=== PATIENT | female | born 1935 | race Caucasian/White ===

== ENCOUNTER 2019-01-03 12:38 | Emergency (ER) | payer OTHER, SELFPAY ==
[2019-01-03 12:56] VITALS: BP 218/85; PULSE 72; RESP 24; TEMP 36.5; O2SAT 99; BMI 19.0
--- NOTE | 2019-01-03 13:17 | ED_ITS ---
HPI - Syncope General Chief Complaint: Dizziness Stated Complaint: GLF Time Seen by Provider: 01/03/19 13:01 Source: patient and EMS Mode of arrival: EMS Limitations: no limitations History of Present Illness HPI narrative: Patient comes emergency department via EMS after being found to have a syncopal episode at her assisted living facility. Patient states the last thing she remembers was that she was getting ready to go down for meal and woke up on the floor. Patient states she has a sore area on her back does not feel like she was injured in any other way. Patient denies any nausea or vomiting recently. No diarrhea. She does not recall having any chest pains, shortness of breath, or cough. Patient's son states the patient has seemed to be ?wobbly? for about the last 6 weeks, and seems to have been having falls and weakness without focality. Patient denies any other complaints at this time. She states that she is otherwise feeling okay. Related Data Allergies Allergy/AdvReac Type Severity Reaction Status Date / Time No Known Drug Allergies Allergy Verified 01/03/19 12:56 Review of Systems Constitutional Constitutional: Denies chills, Denies fatigue, Denies fever(s), Denies frequent falls, Denies lethargy and Denies weakness Eyes Eyes: Denies change in vision, Denies eye discharge, Denies irritation and Denies loss of vision ENT Ears, Nose, Mouth, and Throat: Denies change in voice, Denies dizziness, Denies neck pain, Denies sore throat and Denies throat swelling Cardiovascular Cardiovascular: Denies chest pain, Reports syncope, Denies irregular heart rhy thm, Denies lightheadedness, Denies palpitations, Denies dyspnea, Denies dyspnea on exertion and Denies orthopnea Respiratory Respiratory: Denies cough, Denies dyspnea, Denies dyspnea on exertion and Denies wheezing Gastrointestinal Gastrointestinal: Denies abdominal pain, Denies change in bowel habits, Denies diarrhea, Denies nausea and Denies vomiting Genitourinary Genitourinary: Denies hematuria, Denies flank pain, Denies urinary incontinence and Denies urinary urgency Musculoskeletal Musculoskeletal: Denies back pain, Denies muscle weakness, Denies neck pain, Denies numbness and Denies tingling Integumentary/Breasts Skin/Breast: Denies pruritus, Denies erythema, Denies rash and Denies wounds Neurologic Neurologic: Denies behavioral changes, Denies confusion, Denies dizziness, Reports syncope, Denies frequent falls, Denies loss of vision, Denies numbness, Denies tingling and Denies weakness Psychiatric Psychiatric: Denies anxiety, Denies behavioral changes, Denies confusion, Denies depression, Denies homicidal ideation and Denies suicidal ideation Endocrine Endocrine: Denies fatigue, Denies flushing and Denies palpitations Hematologic/Lymphatic Hematologic/Lymphatic: Denies easy bruising Allergic/Immunologic Allergic/Immunologic: Denies urticaria, Denies throat swelling and Denies wheezing Patient History Medical History Anxiety (Chronic Unknown) Chickenpox (Resolved) Depression (Chronic Unknown) Frequent UTI (Chronic Unknown) Hypertension (Chronic ~2007) Measles (Resolved) Surgical History Hx of eye surgery (Resolved Unknown) Hx of hysterectomy (Resolved Unknown) Family History Brother Heart disease Social History Smoking Status: Never smoker Substance Use Type: does not use Exam Initial Vital Signs Initial Vital Signs: Vital Signs Temperature 97.7 F 01/03/19 12:56 Pulse Rate 72 01/03/19 12:56 Respiratory Rate 24 01/03/19 12:56 Blood Pressure 218/85 H 01/03/19 12:56 Pulse Oximetry 99 01/03/19 12:56 Const General: cooperative and well developed Nutritional Appearance: well nourished Orientation: alert, awake and confused Other: Patient answers questions clearly, but repeats herself frequently. [facility] Head: normocephalic and atraumatic Ears: external ears normal Nose: external nose normal and No nasal discharge Face and sinus: face symmetric and No dry mucous membranes Mouth: oral mucosae normal and moist mucous membranes Teeth and gingiva: dentition normal Eyes General: appearance normal, both eyes and all related structures Eyelids: eyelids normal Conjunctivae: conjunctivae normal Sclera: sclerae normal Pupils: PERRL EOM: EOM intact bilaterally Neck Neck: normal visual inspection, trachea midline, No lymphadenopathy, No midline deformity and No JVD Lymphatic: No lymphedema Chest Chest: normal inspection of the chest Resp Effort & Inspection: normal respiratory effort, able to speak in complete sentences, no respiratory distress and no use of accessory muscles Auscultation: clear to auscultation bilaterally, no rales, no rhonchi and no wheezes Cardio Rate: regular rate Rhythm: regular rhythm Heart Sounds: no click, no gallops, no murmurs and no rubs Pulses: normal peripheral pulses GI Inspection: non-distended Palpation: soft, no hepatosplenomegaly, No guarding, No pulsatile mass and No tender Auscultation: normal bowel sounds Back/Spine/Pelvis Back: No CVA tenderness Cervical Spine: cervical ROM normal and No pain with cervical ROM Thoracic/Lumbar Spine: thoracic and lumbar spine normal to inspection Other: Patient has an area of swelling and abrasion over her right posterior rib cage inferiorly. No crepitus or step-off of the ribs. Skin General: no rashes or lesions noted, No jaundice and No petechiae Neuro General: alert, oriented x3, gait normal and no focal motor deficits Speech: speech normal Extrem General: full ROM, no pedal edema and no calf tenderness Other: No hip tenderness. No lower extremity shortening or rotation. Psych Appearance: well kempt Mental Status: mental status grossly normal Attitude: cooperative Thought Content: normal and suicidality Judgment: judgment good Course Course Course Narrative: Patient was worked up with labs, head CT, and x-ray of the ribs. Entire workup was unremarkable. The patient was given IV fluids in the emergency department was found to be feeling better. She was able to ambulate to the bathroom without difficulty. We have discussed home management of symptoms, and the patient and family have been given instructions regarding fall prevention. We have discussed the usual indications for return. Orders Ordered: ED Orders 01/03/19 12:49 EKG-12 Lead Routine 01/03/19 13:08 Complete Blood Count AUTO DIFF Stat Comprehensive Metabolic Panel Stat Troponin & CK Cardiac Panel Stat 01/03/19 13:38 CT head/brain wo con Stat XR ribs RT min 3V w CXR1V Stat 01/03/19 14:50 Urinalysis and Microscopic Stat Discontinued Medications Sodium Chloride (Normal Saline 0.9%) 1,000 mls @ 1,000 mls/hr IV BOLUS ONE Stop: 01/03/19 14:16 Last Infusion: 01/03/19 15:06 Dose: 0 mls/hr Documented by: Admin: 01/03/19 13:53 Dose: 1,000 mls/hr Documented by: DEANDRA Vital Signs Vital signs: Vital Signs - 8 hr 01/03/19 12:56 01/03/19 13:27 01/03/19 13:35 Temperature 97.7 F Pulse Rate 72 91 H 52 L Respiratory Rate 24 19 18 Blood Pressure 218/85 H Blood Pressure [Left Arm] 193/79 H 137/93 H Pulse Oximetry 99 100 100 01/03/19 15:49 01/03/19 16:45 Temperature 98.2 F Pulse Rate 75 73 Respiratory Rate 24 19 Blood Pressure 207/67 H Blood Pressure [Left Arm] 153/99 H Pulse Oximetry 99 99 MDM - Syncope Medical Records Attestation: I reviewed the patient's medical records. Lab Data Attestation: I reviewed the patient's lab results. Result diagrams: 01/03/19 13:08 01/03/19 13:08 Labs: Lab Results 01/03/19 01/03/19 01/03/19 Range/Units 13:08 13:08 14:50 WBC 5.2 (4.5-11.0) X10^3/uL RBC 4.97 (4.0-5.2) X10^6/uL Hgb 15.8 (12.0-16.0) g/dL Hct 46.6 H (36-46) % MCV 93.7 (80-100) fL MCH 31.7 (26-34) PG MCHC 33.9 (30-36) % RDW 14.0 (11.6-14.8) % Plt Count 179 (150-400) X10^3/uL Neut % (Auto) 75.4 H (50-75) % Lymph % (Auto) 14.2 L (25-40) % [place] % (Auto) 9.3 (3-14) % Eos % (Auto) 0.7 L (2-4) % Baso % (Auto) 0.4 (0-2) % Neut # (Auto) 3900 (8172-3038) /uL Lymph # (Auto) 700 L (8077-2918) /uL [place] # (Auto) 500 (0-900) /uL Eos # (Auto) 0 (0-450) /uL Baso # (Auto) 0 (0-100) /uL Sodium 138 (137-145) mmol/L Potassium 3.6 (3.4-5.1) mmol/L Chloride 97 L (98-107) mmol/L Carbon Dioxide 30 (22-32) mmol/L BUN 14 (7-17) mg/dL Creatinine 0.60 (0.52-1.04) mg/dL Estimated GFR > 60.0 (>60) mL/min BUN/Creatinine Ratio 23.3 H (6-22) Glucose 119 H (80-110) mg/dL Calcium 9.5 (8.4-10.2) mg/dL Total Bilirubin 1.5 H (0.2-1.3) mg/dL AST 32 (14-36) IU/L ALT 27 (9-52) IU/L Alkaline Phosphatase 99 (38-126) U/L Total Creatine Kinase 42 (30-135) U/L CK-MB (CK-2) TNP CK-MB (CK-2) Rel Index TNP Troponin I < 0.012 (0.01-0.034) ng/mL Total Protein 7.5 (6.3-8.2) g/dL Albumin 4.4 (3.5-5.0) g/dL Globulin 3.1 (1.7-4.1) g/dL Albumin/Globulin Ratio 1.4 (1.0-2.8) Urine Color Yellow Urine Appearance Cloudy Urine pH 8.0 (4.5-8.0) Ur Specific Merlin 1.010 (1.000-1.035) Urine Protein Negative (Negative) Urine Glucose (UA) Negative (Negative) g/dL Urine Ketones Trace H (NEGATIVE) Urine Occult Blood Negative (Negative) Urine Nitrate Positive (Negative) Urine Bilirubin Negative (NEGATIVE) Urine Urobilinogen 0.2 (0.2) E.U./dL Ur Leukocyte Esterase Trace H (NEGATIVE) Urine RBC None seen (0-5/HPF) Urine WBC 5-10/hpf H (0-5/HPF) Ur Squamous Epith Cells 5-10 /hpf H (0-5/HPF) Urine Bacteria Many (>30) H (None) Ur Culture Indicated? Cult not indicated Imaging Data Rib x-ray series: Radiologist's impression: PROCEDURE: XR RIBS RT MIN 3V W CXR 1V INDICATIONS: rib injury with fall TECHNIQUE: 2 views of the right ribs were acquired, along with a single view chest. COMPARISON: None. FINDINGS: Surgical changes and devices: None. Bones and chest wall: No fractures or dislocations. No suspicious bony lesions. Overlying soft tissues appear unremarkable. Lungs and pleura: No pleural effusions or pneumothorax. Lungs appear clear. Mediastinum: Mediastinal contours appear normal. Heart size is normal. IMPRESSION: 1. No acute process. 2. No acute fracture. No osseous lesion. If symptoms and/or clinical suspicion f or pathology persist, further assessment with repeat, or advanced imaging (e.g., CT or bone scan) may be helpful for further assessment. Dictated by: Al Auguste M.D. on 01/03/2019 at 14:16 Approved by: Al Auguste M.D. on 01/03/2019 at 14:17 CT scan - head: Radiologist's impression: PROCEDURE: CT HEAD/BRAIN WO CON INDICATIONS: syncope, hit head TECHNIQUE: Noncontrast 4.5 mm thick angled axial sections acquired from the foramen magnum to the vertex, with coronal and sagittal reformats. For radiation dose reduction, the following was used: automated exposure control, adjustment of mA and/or kV according to patient size. COMPARISON: None. FINDINGS: Image quality: Excellent. CSF spaces: Basal cisterns are patent. No extra-axial fluid collections. The ventricles are symmetric in size and shape. Brain: No intracranial bleeds or masses. There is cerebral volume loss for age, with resultant ventricular and sulcal prominence. There are periventricular and deep white matter chronic small vessel ischemic changes. 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 There is intracranial internal carotid artery atherosclerosis. Skull and face: Calvarium and visualized facial bones appear intact, without suspicious lesions. Incidental note is made of hyperostosis frontalis. This is not considered to be pathologic in a woman of this age. Sinuses: Visualized sinuses and mastoids are clear. Incidental note is made of mild to moderate leftward nasal septal deviation. IMPRESSION: No acute intracranial process is seen. No acute intracranial hemorrhage is seen. Note is made of age-appropriate brain parenchymal volume loss and chronic small vessel ischemic changes. Dictated by: Ike Cohen M.D. on 01/03/2019 at 13:05 Approved by: Ike Cohen M.D. on 01/03/2019 at 13:06 ECG Data Attestation: I personally reviewed and interpreted this ECG as follows: (See below) Interpretation: Twelve lead EKG performed January 03, 2019 at 12:49 p.m., as follows: Regular ventricular rhythm with a rate of [address] intervals 166 millisecond QRS durations 98 millisecond QTC interval is [address] T wave changes Interpretation: Sinus rhythm with occasional PVCs; borderline right axis deviation; no signs of acute ischemia; borderline EKG as interpreted by EDMD. Discharge Plan Departure Patient Disposition: Home Clinical Impression: Syncope Qualifiers: Syncope type: unspecified Qualified Code(s): R55 - Syncope and collapse Fall Qualifiers: Encounter type: initial encounter Qualified Code(s): W19.XXXA - Unspecified fall, initial encounter Discharge Date/Time: 01/03/19 16:45 Instructions: DI for Syncope in Adults (Fainting) Activity Restrictions/Additional Instructions: The tests all look good. There is no evidence of an emergent cause the fall/fainting episode today. There is also no evidence of significant trauma associated with this. Please be sure to have Almita drink plenty of fluids, and have her follow up with her primary care physician. Referrals: [facility] [Provider Group]
[2019-01-03 13:24] LABS: Add Manual Diff / Slide Review NO; Basophils Absolute Auto 0 /uL (0-100); Basophils Percent Auto 0.4 % (0-2); Eosinophils Absolute Auto 0 /uL (0-450); Eosinophils Percent Auto 0.7 % (2-4); Hematocrit 46.6 % (36-46); Hemoglobin 15.8 g/dL (12.0-16.0); Lymphocytes Absolute Auto 700 /uL (1100-4500); Lymphocytes Percent Auto 14.2 % (25-40); Mean Corpuscular HGB Conc 33.9 % (30-36); Mean Corpuscular Hemoglobin 31.7 PG (26-34); Mean Corpuscular Volume 93.7 fL (80-100); Monocytes Absolute Auto 500 /uL (0-900); Monocytes Percent Auto 9.3 % (3-14); Neutrophils Absolute Auto 3900 /uL (1500-7000); Neutrophils Percent Auto 75.4 % (50-75); Platelet Count 179 X10^3/uL (150-400); Red Blood Cell Count 4.97 X10^6/uL (4.0-5.2); White Blood Cell Count 5.2 X10^3/uL (4.5-11.0)
[2019-01-03 13:27] VITALS: BP 193/79; PULSE 91; RESP 19; O2SAT 100
[2019-01-03 13:29] LABS: Alanine Aminotransferase 27 IU/L (9-52); Albumin 4.4 g/dL (3.5-5.0); Albumin Globulin Ratio 1.4 (1.0-2.8); Alkaline Phosphatase 99 U/L (38-126); Aspartate Aminotransferase 32 IU/L (14-36); BUN Creatinine Ratio 23.3 (6-22); Bilirubin Total 1.5 mg/dL (0.2-1.3); Blood Urea Nitrogen 14 mg/dL (7-17); Calcium 9.5 mg/dL (8.4-10.2); Carbon Dioxide 30 mmol/L (22-32); Chloride 97 mmol/L (98-107); Creatine Kinase 42 U/L (30-135); Estimated Glomerular Filt Rate > 60.0 mL/min (>60); Globulin 3.1 g/dL (1.7-4.1); Glucose 119 mg/dL (80-110); HEMOLYSIS 24 (0-50); Potassium 3.6 mmol/L (3.4-5.1); Sodium 138 mmol/L (137-145); Total Protein 7.5 g/dL (6.3-8.2)
[2019-01-03 13:35] VITALS: BP 137/93; PULSE 52; RESP 18; O2SAT 100
--- NOTE | 2019-01-03 13:38 | DI.RAD.S_ITS ---
PROCEDURE: XR RIBS RT MIN 3V W CXR 1V INDICATIONS: rib injury with fall TECHNIQUE: 2 views of the right ribs were acquired, along with a single view chest. COMPARISON: None. FINDINGS: Surgical changes and devices: None. Bones and chest wall: No fractures or dislocations. No suspicious bony lesions. Overlying soft tissues appear unremarkable. Lungs and pleura: No pleural effusions or pneumothorax. Lungs appear clear. Mediastinum: Mediastinal contours appear normal. Heart size is normal. IMPRESSION: 1. No acute process. 2. No acute fracture. No osseous lesion. If symptoms and/or clinical suspicion for pathology persist, further assessment with repeat, or advanced imaging (e.g., CT or bone scan) may be helpful for further assessment. Dictated by: Al Auguste M.D. on 01/03/2019 at 14:16 Approved by: Al Auguste M.D. on 01/03/2019 at 14:17
--- NOTE | 2019-01-03 13:38 | DI.CT.S_ITS ---
PROCEDURE: CT HEAD/BRAIN WO CON INDICATIONS: syncope, hit head TECHNIQUE: Noncontrast 4.5 mm thick angled axial sections acquired from the foramen magnum to the vertex, with coronal and sagittal reformats. For radiation dose reduction, the following was used: automated exposure control, adjustment of mA and/or kV according to patient size. COMPARISON: None. FINDINGS: Image quality: Excellent. CSF spaces: Basal cisterns are patent. No extra-axial fluid collections. The ventricles are symmetric in size and shape. Brain: No intracranial bleeds or masses. There is cerebral volume loss for age, with resultant ventricular and sulcal prominence. There are periventricular and deep white matter chronic small vessel ischemic changes. 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 There is intracranial internal carotid artery atherosclerosis. Skull and face: Calvarium and visualized facial bones appear intact, without suspicious lesions. Incidental note is made of hyperostosis frontalis. This is not considered to be pathologic in a woman of this age. Sinuses: Visualized sinuses and mastoids are clear. Incidental note is made of mild to moderate leftward nasal septal deviation. IMPRESSION: No acute intracranial process is seen. No acute intracranial hemorrhage is seen. Note is made of age-appropriate brain parenchymal volume loss and chronic small vessel ischemic changes. Dictated by: Ike Cohen M.D. on 01/03/2019 at 13:05 Approved by: Ike Cohen M.D. on 01/03/2019 at 13:06
[2019-01-03 13:40] LABS: Troponin I < 0.012 ng/mL (0.01-0.034)
[2019-01-03] MEDS: SODIUM CHLORIDE 0.9% 1,000 ML 1000 ML IV (13:53)
[2019-01-03 15:49] VITALS: BP 153/99; PULSE 75; RESP 24; O2SAT 99
[2019-01-03 15:54] LABS: RBC Urine None Seen (0-5/HPF)
[2019-01-03 15:56] LABS: Appearance Urine UA CLOUDY; Bilirubin Urine UA NEGATIVE (NEGATIVE); Color Urine UA YELLOW; Glucose Urine UA NEGATIVE (Negative); Ketones Urine UA TRACE (NEGATIVE); Leukocyte Esterase Urine UA TRACE (NEGATIVE); Nitrite Urine UA POSITIVE (Negative); Occult Blood Urine UA NEGATIVE (Negative); Protein Urine UA NEGATIVE (Negative); Urobilinogen Urine UA 0.2 E.U./dL (0.2)
[2019-01-03 16:04] LABS: Bacteria Urine Many (>30); Culture Indicated Urine Cult Not Indicated; Squamous Epithelial Cell Urine 5-10 /HPF (0-5/HPF); WBC Urine 5-10/HPF (0-5/HPF)
[2019-01-03 16:45] VITALS: BP 207/67; PULSE 73; RESP 19; TEMP 36.8; O2SAT 99
== END 2019-01-03 16:45 | disposition home or self-care (01) ==
PROVIDERS: Emergency Provider Emergency Medicine
DX: R55 Syncope and collapse (principal); I10 Essential (primary) hypertension; R42 Dizziness and giddiness; S29.9XXA Unspecified injury of thorax, initial encounter; S09.90XA Unspecified injury of head, initial encounter; W18.30XA Fall on same level, unspecified, initial encounter
CPT/HCPCS: 36415; 70450; 71101; 80053; 81001; 82550; 84484; 85025; 93005; 93010; 96360; 99283; 99285

== ENCOUNTER 2019-05-07 11:25 | Observation (INO) | payer OTHER, SELFPAY ==
[2019-05-07] VITALS (18 sets, daily range): BP systolic 122–183; BP diastolic 62–131; PULSE 76–134; RESP 14–22; TEMP 36.8–37.1; O2SAT 96–99; BMI 23.0
--- NOTE | 2019-05-07 11:42 | DI.RAD.S_ITS ---
PROCEDURE: XR KNEE RT 3V INDICATIONS: fall, right knee pain TECHNIQUE: 3 views of the knee were acquired. COMPARISON: None. FINDINGS: Bones: No fractures or dislocations. No suspicious bony lesions. Moderate degenerative arthritis. Soft tissues: No joint effusion. No suspicious soft tissue calcifications. IMPRESSION: Moderate degenerative arthritis. No evidence acute bony abnormality of the right knee.. If clinical suspicion and/or symptoms persist, further assessment with repeat plain films, or advanced imaging (e.g., CT, MRI, or bone scan) may be helpful for further assessment. Dictated by: Forrest Sanderson M.D. on 05/07/2019 at 12:31 Approved by: Forrest Sanderson M.D. on 05/07/2019 at 12:31
--- NOTE | 2019-05-07 11:42 | DI.RAD.S_ITS ---
PROCEDURE: XR CHEST 1V INDICATIONS: fall, tachycardia TECHNIQUE: One view of the chest was acquired. COMPARISON: None. FINDINGS: Surgical changes and devices: None. Lungs and pleura: Lungs are clear. No pleural effusions or pneumothorax. Mediastinum: Mediastinal contours appear normal. Heart size is normal. Bones and chest wall: No suspicious bony lesions. Overlying soft tissues appear unremarkable. IMPRESSION: No evidence acute pulmonary process. Dictated by: Forrest Sanderson M.D. on 05/07/2019 at 12:23 Approved by: Forrest Sanderson M.D. on 05/07/2019 at 12:23
--- NOTE | 2019-05-07 11:42 | DI.RAD.S_ITS ---
PROCEDURE: XR HIP W PEL IF DONE BILAT 2V INDICATIONS: fall pain in bilateral hip TECHNIQUE: AP pelvis with lateral view(s) of the bilateral hip(s). COMPARISON: None. FINDINGS: Bones: No fractures or dislocations. Pelvic ring appears intact. No suspicious bony lesions. Soft tissues: The visualized bowel gas pattern is normal. No suspicious soft tissue calcifications. IMPRESSION: No evidence acute bony abnormality of the pelvis and bilateral hips. If clinical suspicion and/or symptoms persist, further assessment with repeat plain films, or advanced imaging (e.g., CT, MRI, or bone scan) may be helpful for further assessment. Dictated by: Forrest Sanderson M.D. on 05/07/2019 at 12:22 Approved by: Forrest Sanderson M.D. on 05/07/2019 at 12:23
[2019-05-07 12:05] LABS: Add Manual Diff / Slide Review NO; Basophils Absolute Auto 0 /uL (0-100); Basophils Percent Auto 0.5 % (0-2); Eosinophils Absolute Auto 0 /uL (0-450); Eosinophils Percent Auto 0.5 % (2-4); Hematocrit 43.2 % (36-46); Hemoglobin 14.8 g/dL (12.0-16.0); Lymphocytes Absolute Auto 1100 /uL (1100-4500); Lymphocytes Percent Auto 20.6 % (25-40); Mean Corpuscular HGB Conc 34.2 % (30-36); Mean Corpuscular Hemoglobin 31.7 PG (26-34); Mean Corpuscular Volume 92.5 fL (80-100); Monocytes Absolute Auto 700 /uL (0-900); Monocytes Percent Auto 12.9 % (3-14); Neutrophils Absolute Auto 3500 /uL (1500-7000); Neutrophils Percent Auto 65.5 % (50-75); Platelet Count 166 X10^3/uL (150-400); Red Blood Cell Count 4.67 X10^6/uL (4.0-5.2); Red Cell Distribution Width 13.6 % (11.6-14.8); White Blood Cell Count 5.3 X10^3/uL (4.5-11.0)
[2019-05-07 12:20] LABS: Alanine Aminotransferase 20 IU/L (<35); Albumin Globulin Ratio 1.3 (1.0-2.8); Alkaline Phosphatase 83 U/L (38-126); Aspartate Aminotransferase 30 IU/L (14-36); BUN Creatinine Ratio 35.7 (6-22); Bilirubin Total 1.1 mg/dL (0.2-1.3); Blood Urea Nitrogen 25 mg/dL (7-17); Calcium 9.1 mg/dL (8.4-10.2); Carbon Dioxide 28 mmol/L (22-32); Chloride 101 mmol/L (98-107); Creatine Kinase 40 U/L (30-135); Estimated Glomerular Filt Rate > 60.0 mL/min (>60); Globulin 3.1 g/dL (1.7-4.1); Glucose 91 mg/dL (80-110); HEMOLYSIS 21 (0-50); Potassium 4.2 mmol/L (3.4-5.1); Sodium 137 mmol/L (137-145); Total Protein 7.1 g/dL (6.3-8.2)
[2019-05-07 12:32] LABS: Troponin I < 0.012 ng/mL (0.01-0.034)
[2019-05-07] MEDS: SODIUM CHLORIDE 0.9% 500 ML 1000 ML IV (13:02)
[2019-05-07] MEDS: dilTIAZem 5 MG/ML SDV 10 MG IV (13:02)
--- NOTE | 2019-05-07 13:08 | PC.NURSE ---
Pt is on no meds, has no allergies. Pt's son has been working through [facility] to gain guardianship and get into an assistive living or memory care unit. Pt has no PCP (she didn't like the last one she had) and son is working to find another. 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 He appears very loving and caring towards his mother and she is very comfortable w/ him.
--- NOTE | 2019-05-07 13:12 | ED_ITS ---
HPI - Fall <MOIRA Landon - Last Filed: 05/07/19 21:34> General Chief Complaint: Fall Stated Complaint: GLF Time Seen by Provider: 05/07/19 11:28 Source: patient Mode of arrival: Ambulatory Limitations: other (Dementia) History of Present Illness HPI Narrative: This is a 83 year female, nonsmoker, who presents to ED with [facility] with chief complain of fall. Patient currently lives alone at independent apartment at [facility]. Patient is unable to recall clearly but she states she wanted to stand up and to leave the room and possibly lost her balance and landed on her right hip. It is clear the patient has memory difficulty and unable to provide clear history. Patient reports she was on the floor a bit and called others to help. Finally, she was able to call her son and son contacted medics to respond to patient's call. According to medics, patient was able to take few steps at the scene without assistance but reports discomfort in right hip and knee. Upon arrival to ED patient complain of dizziness. Patient was hypertensive en route to ED. Patient denies chest pain, breathing difficulty. Son states patient does not have PCP currently and visits walk-in clinic for medical care. She is not currently taking any medications. Patient has history of hypertension, dementia and depression. Patient's last visit to ED was December last year with another fall. Related Data Home Medications Medication Instructions Recorded Confirmed No Known Home Medications 05/07/19 05/07/19 Allergies Allergy/AdvReac Type Severity Reaction Status Date / Time No Known Drug Allergies Allergy Verified 01/03/19 12:56 Review of Systems <MOIRA Landon - Last Filed: 05/07/19 21:34> Review of Systems Narrative: Respiratory: Denies dyspnea, cough, wheezing, hemoptysis, sputum. Cardiovascular: Denies chest pain, palpitations, orthopnea, edema. Musculoskeletal: HPI ROS Unobtainable: Unobtainable due to mental status/LOC Patient History <MOIRA Landon - Last Filed: 05/07/19 21:34> Medical History Anxiety (Chronic Unknown) Chickenpox (Resolved) Depression (Chronic Unknown) Frequent UTI (Chronic Unknown) Hypertension (Chronic ~2007) Measles (Resolved) Surgical History Hx of eye surgery (Resolved Unknown) Hx of hysterectomy (Resolved Unknown) Family History Brother Heart disease Social History household members: none Smoking Status: Never smoker alcohol intake: former Smoking Status: Never smoker Substance Use Type: does not use Exam <MOIRA Landon - Last Filed: 05/07/19 21:34> Narrative Exam Narrative: GEN: Alert, oriented x 3, thin appearing and in no acute distress. Head: Normal cephalic, atraumatic. No scalp or temporal tenderness, palpable mass or rash. EYES: Pupils are equal, round, and reactive to light and accommodation. Extraocular muscles are intact bilaterally. There is no subconjunctival hemorrhage, exudate and sclera non-icteric. ENT: Bilateral auditory canals and tympanic membranes clear. Hearing grossly intact. Nose without bleeding, purulent discharge or deviation. Facial sinuses nontender to palpate. Mucous membrane moist, no mucosal lesion. Throat without erythema, tonsillar hypertrophy or exudate. Uvula in midline, airway patent. Neck: Trachea in midline. No JVD, non-tender without lymphadenopathy. No masses or thyroid megaly. Supple, non-tender and no meningeal signs. CARDIAC: Irregular rhythm and tachycardia rate in 120's without murmurs, gallops, or rubs. No chest wall tenderness. No peripheral edema, cyanosis or pallor. Capillary refill is less than 2 seconds. RESPIRATORY: Lungs are clear to auscultate bilaterally. No cough, wheezes, rales, or rhonchi. No stridor, respiratory distress, increase work of breathing, or accessary muscle used. ABD: Abdomen soft, nontender and non-distended. No guarding or rebound tenderness to palpate. Bowel sounds are normal in all 4 quadrants. There is no palpable masses or organomegaly. SKIN: Warm, dry, normal color for patient. No erythema, lesions or rash over visible areas. BACK: Nontender without deformity or crepitance. No flank tenderness. NEUROLOGICAL: Oriented to place, person which is patient's baseline according to patient's son. Sensation and motor function intact bilaterally. No facial droops, dysphasia. PSYCHIATRIC: No hallucinations, abnormal affect or abnormal behaviors during the examination. Initial Vital Signs Initial Vital Signs: Vital Signs Temperature 98.2 F 05/07/19 11:42 Pulse Rate 120 H 05/07/19 11:42 Respiratory Rate 22 05/07/19 11:42 Blood Pressure 161/131 H 05/07/19 11:42 Pulse Oximetry 98 05/07/19 11:42 <Brandan Nicolas DO - Last Filed: 05/09/19 06:58> Initial Vital Signs Initial Vital Signs: Vital Signs Temperature 98.2 F 05/07/19 11:42 Pulse Rate 120 H 05/07/19 11:42 Respiratory Rate 22 05/07/19 11:42 Blood Pressure 161/131 H 05/07/19 11:42 Pulse Oximetry 98 05/07/19 11:42 Scores <[facility] Last Filed: 05/07/19 21:34> GCS Romario coma scale eye opening: Spontaneous Romario coma scale verbal response: Confused [place] coma scale motor response: Obey commands Romario coma scale total score: 14 Nexus Score for C-Spine Focal Neurologic deficit present: No Midline spinal tenderness present: No Altered level of conciousness present: No Intoxication present: No Distracting Injury Present: No Nexus Criteria for C-spine: 0 Course <MOIRA Landon Last Filed: 05/07/19 21:34> Orders Ordered: Acetaminophen (Tylenol) 650 mg PO Q6HR PRN PRN Reason: Fever/Mild Pain (1-3) Last Admin: 05/09/19 00:05 Dose: 650 mg Documented by: Admin: 05/07/19 19:27 Dose: 650 mg Documented by: EMELINA Enoxaparin Sodium (Lovenox) 40 mg SUBCUT DAILY [facility] Last Admin: 05/08/19 07:49 Dose: 40 mg Documented by: JACKLYN Ceftriaxone Sodium/Dextrose (Rocephin) 1 gm in 50 mls @ 100 mls/hr IV Q24H [facility] Stop: 05/10/19 14:59 Last Admin: 05/08/19 14:24 Dose: 100 mls/hr Documented by: JACKLYN Melatonin (Melatonin) 6 mg PO BEDTIME PRN PRN Reason: sleep Stop: 05/10/19 20:25 Last Admin: 05/08/19 20:39 Dose: 6 mg Documented by: Admin: 05/07/19 20:42 Dose: 6 mg Documented by: BEAN Metoprolol Succinate (Toprol Xl) 50 mg PO BID [facility] Last Admin: 05/08/19 20:32 Dose: 50 mg Documented by: ARELI Ondansetron HCl (Zofran) 4 mg IV Q8HR PRN PRN Reason: Nausea And Vomiting Sodium Chloride (Normal Saline 0.9% Flush) 10 ml IV PRN PRN PRN Reason: Flush Sodium Chloride (Normal Saline 0.9% Flush) 10 ml IV BID [facility] Last Admin: 05/08/19 20:32 Dose: 10 ml Documented by: Admin: 05/08/19 07:49 Dose: 10 ml Documented by: JACKLYN Discontinued Medications Diltiazem HCl (Cardizem) 10 mg IV NOW ONE Stop: 05/07/19 12:40 Last Admin: 05/07/19 13:02 Dose: 10 mg Documented by: JAGDISH Sodium Chloride (Normal Saline 0.9%) 1,000 mls @ 150 mls/hr IV CONT [facility] Last Admin: 05/07/19 12:47 Dose: Not Given Documented by: JAGDISH Sodium Chloride (Normal Saline 0.9%) 500 mls @ 1,000 mls/hr IV BOLUS ONE Stop: 05/07/19 13:01 Last Infusion: 05/07/19 14:00 Dose: 0 mls/hr Documented by: Admin: 05/07/19 13:02 Dose: 1,000 mls/hr Documented by: JAGDISH Ceftriaxone Sodium/Dextrose (Rocephin) 1 gm in 50 mls @ 100 mls/hr IV NOW ONE Stop: 05/07/19 15:15 Last Infusion: 05/07/19 15:45 Dose: 0 mls/hr Documented by: Admin: 05/07/19 15:15 Dose: 100 mls/hr Documented by: JAGDISH Metoprolol Succinate (Toprol Xl) 25 mg PO NOW ONE Stop: 05/07/19 14:47 Last Admin: 05/07/19 15:33 Dose: 25 mg Documented by: JAGDISH Metoprolol Succinate (Toprol Xl) 25 mg PO BID [facility] Last Admin: 05/08/19 07:49 Dose: 25 mg Documented by: Admin: 05/07/19 20:42 Dose: 25 mg Documented by: BEAN Metoprolol Succinate (Toprol Xl) 25 mg PO NOW ONE Stop: 05/08/19 08:52 Last Admin: 05/08/19 10:01 Dose: 25 mg Documented by: JACKLYN Nitrofurantoin Macrocrystals (Macrobid 100 Mg Capsule) 100 mg PO NOW ONE Stop: 05/07/19 14:31 Last Admin: 05/07/19 15:03 Dose: Not Given Documented by: JAGDISH Vital Signs Vital signs: Vital Signs - 8 hr 05/07/19 13:31 05/07/19 14:00 05/07/19 14:02 Pulse Rate 121 H 89 Respiratory Rate 20 15 Blood Pressure [Left Arm] 152/92 H 163/80 H Pulse Oximetry 99 99 <Brandan Nicolas DO - Last Filed: 05/09/19 06:58> Orders Ordered: Acetaminophen (Tylenol) 650 mg PO Q6HR PRN PRN Reason: Fever/Mild Pain (1-3) Last Admin: 05/09/19 00:05 Dose: 650 mg Documented by: Admin: 05/07/19 19:27 Dose: 650 mg Documented by: EMELINA Enoxaparin Sodium (Lovenox) 40 mg SUBCUT DAILY [facility] Last Admin: 05/08/19 07:49 Dose: 40 mg Documented by: JACKLYN Ceftriaxone Sodium/Dextrose (Rocephin) 1 gm in 50 mls @ 100 mls/hr IV Q24H [facility] Stop: 05/10/19 14:59 Last Admin: 05/08/19 14:24 Dose: 100 mls/hr Documented by: JACKLYN Melatonin (Melatonin) 6 mg PO BEDTIME PRN PRN Reason: sleep Stop: 05/10/19 20:25 Last Admin: 05/08/19 20:39 Dose: 6 mg Documented by: Admin: 05/07/19 20:42 Dose: 6 mg Documented by: BEAN Metoprolol Succinate (Toprol Xl) 50 mg PO BID [facility] Last Admin: 05/08/19 20:32 Dose: 50 mg Documented by: ARELI Ondansetron HCl (Zofran) 4 mg IV Q8HR PRN PRN Reason: Nausea And Vomiting Sodium Chloride (Normal Saline 0.9% Flush) 10 ml IV PRN PRN PRN Reason: Flush Sodium Chloride (Normal Saline 0.9% Flush) 10 ml IV BID [facility] Last Admin: 05/08/19 20:32 Dose: 10 ml Documented by: Admin: 05/08/19 07:49 Dose: 10 ml Documented by: JACKLYN Discontinued Medications Diltiazem HCl (Cardizem) 10 mg IV NOW ONE Stop: 05/07/19 12:40 Last Admin: 05/07/19 13:02 Dose: 10 mg Documented by: JAGDISH Sodium Chloride (Normal Saline 0.9%) 1,000 mls @ 150 mls/hr IV CONT [facility] Last Admin: 05/07/19 12:47 Dose: Not Given Documented by: JAGDISH Sodium Chloride (Normal Saline 0.9%) 500 mls @ 1,000 mls/hr IV BOLUS ONE Stop: 05/07/19 13:01 Last Infusion: 05/07/19 14:00 Dose: 0 mls/hr Documented by: Admin: 05/07/19 13:02 Dose: 1,000 mls/hr Documented by: JAGDISH Ceftriaxone Sodium/Dextrose (Rocephin) 1 gm in 50 mls @ 100 mls/hr IV NOW ONE Stop: 05/07/19 15:15 Last Infusion: 05/07/19 15:45 Dose: 0 mls/hr Documented by: Admin: 05/07/19 15:15 Dose: 100 mls/hr Documented by: JAGDISH Metoprolol Succinate (Toprol Xl) 25 mg PO NOW ONE Stop: 05/07/19 14:47 Last Admin: 05/07/19 15:33 Dose: 25 mg Documented by: JAGDISH Metoprolol Succinate (Toprol Xl) 25 mg PO BID [facility] Last Admin: 05/08/19 07:49 Dose: 25 mg Documented by: Admin: 05/07/19 20:42 Dose: 25 mg Documented by: BEAN Metoprolol Succinate (Toprol Xl) 25 mg PO NOW ONE Stop: 05/08/19 08:52 Last Admin: 05/08/19 10:01 Dose: 25 mg Documented by: JACKLYN Nitrofurantoin Macrocrystals (Macrobid 100 Mg Capsule) 100 mg PO NOW ONE Stop: 05/07/19 14:31 Last Admin: 05/07/19 15:03 Dose: Not Given Documented by: JAGDISH Vital Signs Vital signs: Vital Signs - 8 hr 05/07/19 13:31 05/07/19 14:00 05/07/19 14:02 Pulse Rate 121 H 89 Respiratory Rate 20 15 Blood Pressure [Left Arm] 152/92 H 163/80 H Pulse Oximetry 99 99 MDM - Fall <Clark MOIRA Sanchez - Last Filed: 05/07/19 21:34> Differential Diagnosis Differential diagnosis: Likely syncope and other (Hip fracture, new onset of AFib) Medical Records Attestation: I reviewed the patient's medical records. Lab Data Attestation: I reviewed the patient's lab results. Result diagrams: 05/08/19 04:40 05/09/19 05:05 Labs: Lab Results 05/07/19 05/07/19 05/07/19 Range/Units 11:55 11:55 11:55 WBC 5.3 (4.5-11.0) X10^3/uL RBC 4.67 (4.0-5.2) X10^6/uL Hgb 14.8 (12.0-16.0) g/dL Hct 43.2 (36-46) % MCV 92.5 (80-100) fL MCH 31.7 (26-34) PG MCHC 34.2 (30-36) % RDW 13.6 (11.6-14.8) % Plt Count 166 (150-400) X10^3/uL Neut % (Auto) 65.5 (50-75) % Lymph % (Auto) 20.6 L (25-40) % [place] % (Auto) 12.9 (3-14) % Eos % (Auto) 0.5 L (2-4) % Baso % (Auto) 0.5 (0-2) % Neut # (Auto) 3500 (3083-3459) /uL Lymph # (Auto) 1100 (9357-6781) /uL [place] # (Auto) 700 (0-900) /uL Eos # (Auto) 0 (0-450) /uL Baso # (Auto) 0 (0-100) /uL Sodium 137 (137-145) mmol/L Potassium 4.2 (3.4-5.1) mmol/L Chloride 101 (98-107) mmol/L Carbon Dioxide 28 (22-32) mmol/L BUN 25 H (7-17) mg/dL Creatinine 0.70 (0.52-1.04) mg/dL Estimated GFR > 60.0 (>60) mL/min BUN/Creatinine Ratio 35.7 H (6-22) Glucose 91 (80-110) mg/dL Calcium 9.1 (8.4-10.2) mg/dL Total Bilirubin 1.1 (0.2-1.3) mg/dL AST 30 (14-36) IU/L ALT 20 (<35) IU/L Alkaline Phosphatase 83 (38-126) U/L Total Creatine Kinase 40 (30-135) U/L CK-MB (CK-2) TNP CK-MB (CK-2) Rel Index TNP Troponin I < 0.012 (0.01-0.034) ng/mL Total Protein 7.1 (6.3-8.2) g/dL Albumin 4.0 (3.5-5.0) g/dL Globulin 3.1 (1.7-4.1) g/dL Albumin/Globulin Ratio 1.3 (1.0-2.8) TSH 1.70 (0.47-4.68) uIU/mL Free T4 1.35 (0.78-2.19) ng/dL Ur Bilirubin Confirm (Negative) Urine RBC (0-5/HPF) Urine WBC (0-5/HPF) Ur Squamous Epith Cells (0-5/HPF) Urine Bacteria (None) Ur Culture Indicated? 05/07/19 Range/Units 13:25 WBC (4.5-11.0) X10^3/uL RBC (4.0-5.2) X10^6/uL Hgb (12.0-16.0) g/dL Hct (36-46) % MCV (80-100) fL MCH (26-34) PG MCHC (30-36) % RDW (11.6-14.8) % Plt Count (150-400) X10^3/uL Neut % (Auto) (50-75) % Lymph % (Auto) (25-40) % [place] % (Auto) (3-14) % Eos % (Auto) (2-4) % Baso % (Auto) (0-2) % Neut # (Auto) (7772-0421) /uL Lymph # (Auto) (5383-0859) /uL [place] # (Auto) (0-900) /uL Eos # (Auto) (0-450) /uL Baso # (Auto) (0-100) /uL Sodium (137-145) mmol/L Potassium (3.4-5.1) mmol/L Chloride (98-107) mmol/L Carbon Dioxide (22-32) mmol/L BUN (7-17) mg/dL Creatinine (0.52-1.04) mg/dL Estimated GFR (>60) mL/min BUN/Creatinine Ratio (6-22) Glucose (80-110) mg/dL Calcium (8.4-10.2) mg/dL Total Bilirubin (0.2-1.3) mg/dL AST (14-36) IU/L ALT (<35) IU/L Alkaline Phosphatase (38-126) U/L Total Creatine Kinase (30-135) U/L CK-MB (CK-2) CK-MB (CK-2) Rel Index Troponin I (0.01-0.034) ng/mL Total Protein (6.3-8.2) g/dL Albumin (3.5-5.0) g/dL Globulin (1.7-4.1) g/dL Albumin/Globulin Ratio (1.0-2.8) TSH (0.47-4.68) uIU/mL Free T4 (0.78-2.19) ng/dL Ur Bilirubin Confirm Negative (Negative) Urine RBC 0-1/hpf (0-5/HPF) Urine WBC 5-10/hpf H (0-5/HPF) Ur Squamous Epith Cells 1-5 /hpf (0-5/HPF) Urine Bacteria Many (>30) H (None) Ur Culture Indicated? Specimen cultured Urine Dip Bedside Urine Glucose Negative Bedside Urine Bilirubin + 1 Bedside Urine Ketone - Negative Urine Specific [place] 1.015 Bedside Urine Occult Blood - Negative Bedside Urine pH 6.5 Bedside Urine Protein - Negative Bedside Urine Urobilinogen - Negative Bedside Urine Nitrite + Positive Bedside Urine Leukocytes +++ 500 Esterase Imaging Data XR-Knee RT: Radiologist's Impression: [address] [address] XRay Report Signed Patient: Almita Sanchez [facility]#: [id number] : 5Acct:[id number] Age/Sex: 83 / FDate of Service: 05/07/19 Loc: ED Accession Number: [id number] Procedure: XR knee RT 3V Ordering Provider: Clark Sanchez PROCEDURE: XR KNEE RT 3V INDICATIONS: fall, right knee pain TECHNIQUE: 3 views of the knee were acquired. COMPARISON: None. FINDINGS: Bones: No fractures or dislocations. No suspicious bony lesions. Moderate degenerative arthritis. Soft tissues: No joint effusion. No suspicious soft tissue calcifications. IMPRESSION: Moderate degenerative arthritis. No evidence acute bony abnormality of the right knee.. If clinical suspicion and/or symptoms persist, further assessment with repeat plain films, or advanced imaging (e.g., CT, MRI, or bone scan) may be helpful for further assessment. Dictated by: Forrest Sanderson M.D. on 05/07/2019 at 12:31 Approved by: Forrest Sanderson M.D. on 05/07/2019 at 12:31 XR-Hip RT: Radiologist's Impression: [address] [address] XRay Report Signed Patient: Almita Sanchez [facility]#: [id number] : 5Acct:[id number] Age/Sex: 83 / FDate of Service: 05/07/19 Loc: ED Accession Number: [id number] Procedure: XR hip w pel if done BILAT 2V Ordering Provider: Clark Sanchez PROCEDURE: XR HIP W PEL IF DONE BILAT 2V INDICATIONS: fall pain in bilateral hip TECHNIQUE: AP pelvis with lateral view(s) of the bilateral hip(s). COMPARISON: None. FINDINGS: Bones: No fractures or dislocations. Pelvic ring appears intact. No suspicious bony lesions. Soft tissues: The visualized bowel gas pattern is normal. No suspicious soft tissue calcifications. IMPRESSION: No evidence acute bony abnormality of the pelvis and bilateral hips. If clinical suspicion and/or symptoms persist, further assessment with repeat p frank films, or advanced imaging (e.g., CT, MRI, or bone scan) may be helpful for further assessment. Dictated by: Forrest Sanderson M.D. on 05/07/2019 at 12:22 Approved by: Forrest Sanderson M.D. on 05/07/2019 at 12:23 Chest x-ray: Radiologist's Impression: [address] [address] XRay Report Signed Patient: Almita Sanchez [facility]#: [id number] : 5Acct:[id number] Age/Sex: 83 / FDate of Service: 05/07/19 Loc: ED Accession Number: [id number] Procedure: XR chest 1V Ordering Provider: Clark Sanchez PROCEDURE: XR CHEST 1V INDICATIONS: fall, tachycardia TECHNIQUE: One view of the chest was acquired. COMPARISON: None. FINDINGS: Surgical changes and devices: None. Lungs and pleura: Lungs are clear. No pleural effusions or pneumothorax. Mediastinum: Mediastinal contours appear normal. Heart size is normal. Bones and chest wall: No suspicious bony lesions. Overlying soft tissues appear unremarkable. IMPRESSION: No evidence acute pulmonary process. Dictated by: Forrest Sanderson M.D. on 05/07/2019 at 12:23 Approved by: Forrest Sanderson M.D. on 05/07/2019 at 12:23 ECG Data Attestation: I personally reviewed and interpreted this ECG as follows: Prior ECG tracings: available for review Interpretation: Afib with RVR rate at 110 Right [place] dominant QRS dur 82, QT/QTc 338/457 Septal infarct, age undetermied Previous EKG SR with occasional supra premature complexes rate at 64 on 12/07 [facility] Narrative Medical decision making narrative: This is a 83-year-old female who has dementia and lives alone and independent apartment at the [facility] after a fall. Patient was not able to explain the reason why she fell or how she fell but states she fell and landed on a right-sided hip. When medics attempted to a mbulate patient patient complain of right hip/pelvis and knee pain. When patient arrived to ED she complained of dizziness. During physical exam, noticed patient's heart rate is irregular and up to 120s to 130 bmp without known history of AFib. EKG shows AFib with RVR rate at 120s with hypertension. Patient is not taking any medications at this time. Patient's son states she does not have PCP at this time and seek care from walk-in clinic. Patient had another fall in and of December 2018 and the patient's son is hoping to find a placement for his mom at half-way care or fdc. Patient is oriented to place and person which is her baseline. Patient did not complain of headache or mid cervical tenderness. Atraumatic and normal cephalic per exam and CT of head is not obtained. The patient is not on anticoagulants or aspirin at this time. Chest x-ray did not show acute findings. Bilateral hip/pelvis and right knee exam were negative for fractures or dislocations. Patient was medicated with 10 mg of diltiazem which she responded well and rate control to 90s to 100 shortly after. Cardiac enzymes were negative. There was no leukocytosis and with stable H&H. CMP indicates mild dehydration and patient was hydrated with 500 mL of normal saline bolus. Urine dip test shows positive for leuko esterase and positive for nitrite. Patient was medicated with 1 g of Rocephin IV while in ED. Findings were discussed with Dr. Berger and he kindly accepted the patient's care for observation status for PT evaluation and A-fib rate control and Climate Change Analyst evaluation and assistance for placement at a long-term care since patient is not safe to live alone. <Brandan Nicolas, DO - Last Filed: 05/09/19 06:58> Lab Data Labs: Lab Results 05/07/19 05/07/19 05/07/19 Range/Units 11:55 11:55 11:55 WBC 5.3 (4.5-11.0) X10^3/uL RBC 4.67 (4.0-5.2) X10^6/uL Hgb 14.8 (12.0-16.0) g/dL Hct 43.2 (36-46) % MCV 92.5 (80-100) fL MCH 31.7 (26-34) PG MCHC 34.2 (30-36) % RDW 13.6 (11.6-14.8) % Plt Count 166 (150-400) X10^3/uL Neut % (Auto) 65.5 (50-75) % Lymph % (Auto) 20.6 L (25-40) % [place] % (Auto) 12.9 (3-14) % Eos % (Auto) 0.5 L (2-4) % Baso % (Auto) 0.5 (0-2) % Neut # (Auto) 3500 (5971-0390) /uL Lymph # (Auto) 1100 (8891-0837) /uL [place] # (Auto) 700 (0-900) /uL Eos # (Auto) 0 (0-450) /uL Baso # (Auto) 0 (0-100) /uL Sodium 137 (137-145) mmol/L Potassium 4.2 (3.4-5.1) mmol/L Chloride 101 (98-107) mmol/L Carbon Dioxide 28 (22-32) mmol/L BUN 25 H (7-17) mg/dL Creatinine 0.70 (0.52-1.04) mg/dL Estimated GFR > 60.0 (>60) mL/min BUN/Creatinine Ratio 35.7 H (6-22) Glucose 91 (80-110) mg/dL Calcium 9.1 (8.4-10.2) mg/dL Total Bilirubin 1.1 (0.2-1.3) mg/dL AST 30 (14-36) IU/L ALT 20 (<35) IU/L Alkaline Phosphatase 83 (38-126) U/L Total Creatine Kinase 40 (30-135) U/L CK-MB (CK-2) TNP CK-MB (CK-2) Rel Index TNP Troponin I < 0.012 (0.01-0.034) ng/mL Total Protein 7.1 (6.3-8.2) g/dL Albumin 4.0 (3.5-5.0) g/dL Globulin 3.1 (1.7-4.1) g/dL Albumin/Globulin Ratio 1.3 (1.0-2.8) TSH 1.70 (0.47-4.68) uIU/mL Free T4 1.35 (0.78-2.19) ng/dL Ur Bilirubin Confirm (Negative) Urine RBC (0-5/HPF) Urine WBC (0-5/HPF) Ur Squamous Epith Cells (0-5/HPF) Urine Bacteria (None) Ur Culture Indicated? 05/07/19 Range/Units 13:25 WBC (4.5-11.0) X10^3/uL RBC (4.0-5.2) X10^6/uL Hgb (12.0-16.0) g/dL Hct (36-46) % MCV (80-100) fL MCH (26-34) PG MCHC (30-36) % RDW (11.6-14.8) % Plt Count (150-400) X10^3/uL Neut % (Auto) (50-75) % Lymph % (Auto) (25-40) % [place] % (Auto) (3-14) % Eos % (Auto) (2-4) % Baso % (Auto) (0-2) % Neut # (Auto) (4751-4430) /uL Lymph # (Auto) (1789-8749) /uL [place] # (Auto) (0-900) /uL Eos # (Auto) (0-450) /uL Baso # (Auto) (0-100) /uL Sodium (137-145) mmol/L Potassium (3.4-5.1) mmol/L Chloride (98-107) mmol/L Carbon Dioxide (22-32) mmol/L BUN (7-17) mg/dL Creatinine (0.52-1.04) mg/dL Estimated GFR (>60) mL/min BUN/Creatinine Ratio (6-22) Glucose (80-110) mg/dL Calcium (8.4-10.2) mg/dL Total Bilirubin (0.2-1.3) mg/dL AST (14-36) IU/L ALT (<35) IU/L Alkaline Phosphatase (38-126) U/L Total Creatine Kinase (30-135) U/L CK-MB (CK-2) CK-MB (CK-2) Rel Index Troponin I (0.01-0.034) ng/mL Total Protein (6.3-8.2) g/dL Albumin (3.5-5.0) g/dL Globulin (1.7-4.1) g/dL Albumin/Globulin Ratio (1.0-2.8) TSH (0.47-4.68) uIU/mL Free T4 (0.78-2.19) ng/dL Ur Bilirubin Confirm Negative (Negative) Urine RBC 0-1/hpf (0-5/HPF) Urine WBC 5-10/hpf H (0-5/HPF) Ur Squamous Epith Cells 1-5 /hpf (0-5/HPF) Urine Bacteria Many (>30) H (None) Ur Culture Indicated? Specimen cultured Urine Dip Bedside Urine Glucose Negative Bedside Urine Bilirubin + 1 Bedside Urine Ketone - Negative Urine Specific [place] 1.015 Bedside Urine Occult Blood - Negative Bedside Urine pH 6.5 Bedside Urine Protein - Negative Bedside Urine Urobilinogen - Negative Bedside Urine Nitrite + Positive Bedside Urine Leukocytes +++ 500 Esterase Discharge Plan Departure Patient Disposition: Admitted as Observation Clinical Impression: Atrial fibrillation with RVR, Acute UTI Fall Qualifiers: Encounter type: initial encounter Qualified Code(s): W19.XXXA - Unspecified fall, initial encounter Discharge Date/Time: 05/07/19 16:37 Admit Date/Time: 05/07/19 14:56 Admit Provider: Chapito Berger <Brandan Nicolas, DO - Last Filed: 05/09/19 06:58> Sign Out Provider Sign Out Attestation: Dr Nicolas Co-Sign Statement: I was available for consultation during this patient's emergency department visit. This chart is signed by myself for administrative purposes only. I did not have direct contact with this patient during this visit. They were seen independently by the APC.
--- NOTE | 2019-05-07 13:30 | PC.NURSE ---
Pt needed 2 assist to walk to bathroom w/ one near fall. Unsteady on feet. No focal weakness.
[2019-05-07 13:38] LABS: Free T4, Direct Thyroxine 1.35 ng/dL (0.78-2.19)
[2019-05-07 14:00] LABS: Bacteria Urine Many (>30); Culture Indicated Urine Specimen Cultured; Ictotest Urine Negative (Negative); RBC Urine 0-1/HPF (0-5/HPF); Squamous Epithelial Cell Urine 1-5 /HPF (0-5/HPF); WBC Urine 5-10/HPF (0-5/HPF)
[2019-05-07] MEDS: CEFTRIAXONE 1 GM/50 ML FROZ.PIGGY IV (15:15)
[2019-05-07] MEDS: METOPROLOL ER 25 MG TABLET PO ×2 (15:33→20:42)
--- NOTE | 2019-05-07 16:45 | P.HP_ITS ---
History of Present Illness History of Present Illness Date Patient Seen: 05/07/19 Time Patient Seen: 17:21 Chief complaint: GLF Narrative: Almita Sanchez is an 83-year-old female with a past medical history of anxiety/depression, off medication for approximately 1 year, hypertension also off of medication for the past year and frequent urinary tract infections in the past who presented after a fall at her assisted living facility. Patient lives at [facility] and this morning she was wanting to stand up and leave the room but ended up falling with unclear circumstances and landed on her right hip and knee. It is unclear whether she lost consciousness, became dizzy prior to the fall and The patient does not recall the fall at all upon my evaluation and was unable to provide additional history. She denies any recent fevers, chills, shortness of breath, dizziness, chest pain, palpitations, abdominal pain, diaphoresis, nausea, vomiting, dysuria, or urinary frequency. She also presented to the emergency room in December after a fall, but had a negative evaluation at that point, circumstances were very similar. The son reports a progressive decline in her cognition over the past year or so after some deaths in the family. She was previously on an antidepressant but stopped taking this about a year ago because she was feeling fine and did not want to continue the medicine any longer. Further she was seeing Dr. Dyson as her primary care provider, but has not established care with a new provider since she left. The son also reports increasing needs at [facility] which he has been trying to keep up with. Per ED report, and According to medics, patient was able to take few steps at the scene without assistance but reports discomfort in right hip and knee. She was noted to be in AFib with RVR and responded to diltiazem in the emergency room, but still intermittently spikes her heart rates into the 130s and 140s, but is generally in the 90s to 100s. She was also hypertensive, but had no tachypnea and did not desaturate. Chest x-ray did not show an acute cardio- pulmonary process, and imaging of her right hip and knee did not show any frac tures. EKG showed AFib with RVR with a rate of 110, there is no ST depressions or T-wave inversions indicative of ischemia. Her initial troponin was negative. Further lab evaluation was also unremarkable including CBC, BMP, TSH. Her UA was positive with 5-10 wbc's, and many urine bacteria, and the specimen was sent for culture. Patient was given a dose of ceftriaxone, 1 time dose of diltiazem which did improve her rate slightly, and was admitted to Medicine under observation status for AFib with RVR. Patient History Medical History Anxiety (Chronic Unknown) Chickenpox (Resolved) Depression (Chronic Unknown) Frequent UTI (Chronic Unknown) Hypertension (Chronic ~2007) Measles (Resolved) Surgical History Hx of eye surgery (Resolved Unknown) Hx of hysterectomy (Resolved Unknown) Family & Social History Family History Brother Heart disease Tobacco & Substance use: Smoking Status Never smoker Substance Use Type does not use Meds Home Medications and Allergies Home Medications Medication Instructions Recorded Confirmed Type No Known Home Medications 05/07/19 05/07/19 History Allergies Allergy/AdvReac Type Severity Reaction Status Date / Time No Known Drug Allergies Allergy Verified 01/03/19 12:56 Review of Systems Review of Systems Narrative: All other systems reviewed with the patient and are negative unless otherwise stated. Exam Vital Signs (past 8 hours): - 05/07/19 11:42 05/07/19 12:21 05/07/19 12:51 Temperature 98.2 F Pulse Rate 120 H 86 84 Respiratory Rate 22 14 21 Blood Pressure 161/131 H Blood Pressure [Left Arm] 167/89 H 166/105 H Pulse Oximetry 98 99 96 05/07/19 13:02 05/07/19 13:31 05/07/19 14:00 Temperature Pulse Rate 118 H 121 H Respiratory Rate 20 Blood Pressure 166/105 H Blood Pressure [Left Arm] 152/92 H 163/80 H Pulse Oximetry 99 05/07/19 14:02 05/07/19 15:15 05/07/19 15:32 Temperature Pulse Rate 89 134 H 94 H Respiratory Rate 15 22 16 Blood Pressure Blood Pressure [Left Arm] 147/70 H 132/84 Pulse Oximetry 99 99 99 05/07/19 15:33 05/07/19 16:10 05/07/19 16:34 Temperature Pulse Rate 92 H 125 H 122 H Respiratory Rate 15 19 Blood Pressure 132/85 130/70 Blood Pressure [Left Arm] 132/85 Pulse Oximetry 97 99 Oxygen Delivery Method Room Air Narrative Exam Narrative: GENERAL APPEARANCE: Well developed, well nourished, elderly female in no acute distress. SKIN: Inspection of the skin reveals no rashes, ulcerations or petechiae. HEENT: The sclerae were anicteric and conjunctivae were pink and moist. Ex traocular movements were intact and pupils were equal, round with normal accommodation. External inspection of the ears and nose showed no scars, lesions, or masses. Lips, teeth, and gums showed normal mucosa. The oral mucosa, hard and soft palate, tongue and posterior pharynx were unremarkable. NECK: Supple and symmetric. There was no thyroid enlargement, and no tenderness, or masses were felt. CHEST: Normal AP diameter and normal contour without any kyphoscoliosis. LUNGS: Auscultation of the lungs revealed no wheezes, rhonchi, or rales. CARDIOVASCULAR: Tachycardic, irregularly irregular rhythm without murmurs rubs or gallops. ABDOMEN: Soft and nontender with normal bowel sounds. No ascites was noted. MUSCULOSKELETAL: There was no tenderness or effusions noted. Muscle strength and tone were normal. EXTREMITIES: No cyanosis, clubbing or edema. NEUROLOGIC: Alert and oriented x2. Did not attempt to name the date, no focal neurological deficits and cranial nerves 2-12 are grossly intact bilaterally. Objective ECG Impression: AFib with RVR, rate 110. There is no evidence of active ischemia. This is a new diagnosis of AFib compared to single known prior EKG from December of 2018. Imaging Chest x-ray: My impression: No acute cardiopulmonary process. Labs Result Diagrams: 05/07/19 11:55 05/07/19 11:55 Labs: Laboratory Results - last 24 hr 05/07/19 05/07/19 05/07/19 11:55 11:55 11:55 WBC 5.3 RBC 4.67 Hgb 14.8 Hct 43.2 MCV 92.5 MCH 31.7 MCHC 34.2 RDW 13.6 Plt Count 166 Neut % (Auto) 65.5 Lymph % (Auto) 20.6 L [place] % (Auto) 12.9 Eos % (Auto) 0.5 L Baso % (Auto) 0.5 Neut # (Auto) 3500 Lymph # (Auto) 1100 [place] # (Auto) 700 Eos # (Auto) 0 Baso # (Auto) 0 Sodium 137 Potassium 4.2 Chloride 101 Carbon Dioxide 28 BUN 25 H Creatinine 0.70 Estimated GFR > 60.0 BUN/Creatinine Ratio 35.7 H Glucose 91 Calcium 9.1 Total Bilirubin 1.1 AST 30 ALT 20 Alkaline Phosphatase 83 Total Creatine Kinase 40 CK-MB (CK-2) TNP CK-MB (CK-2) Rel Index TNP Troponin I < 0.012 Total Protein 7.1 Albumin 4.0 Globulin 3.1 Albumin/Globulin Ratio 1.3 TSH 1.70 Free T4 1.35 Ur Bilirubin Confirm Urine RBC Urine WBC Ur Squamous Epith Cells Urine Bacteria Ur Culture Indicated? 05/07/19 13:25 WBC RBC Hgb Hct MCV MCH MCHC RDW Plt Count Neut % (Auto) Lymph % (Auto) [place] % (Auto) Eos % (Auto) Baso % (Auto) Neut # (Auto) Lymph # (Auto) [place] # (Auto) Eos # (Auto) Baso # (Auto) Sodium Potassium Chloride Carbon Dioxide BUN Creatinine Estimated GFR BUN/Creatinine Ratio Glucose Calcium Total Bilirubin AST ALT Alkaline Phosphatase Total Creatine Kinase CK-MB (CK-2) CK-MB (CK-2) Rel Index Troponin I Total Protein Albumin Globulin Albumin/Globulin Ratio TSH Free T4 Ur Bilirubin Confirm Negative Urine RBC 0-1/hpf Urine WBC 5-10/hpf H Ur Squamous Epith Cells 1-5 /hpf Urine Bacteria Many (>30) H Ur Culture Indicated? Specimen cultured Assessment & Plan Assessment & Plan narrative: Almita Sanchez is an 83-year-old female with a past medical history of anxiety/depression, off medication for approximately 1 year, hypertension also off of medication for the past year and frequent urinary tract infections in the past who presented after a fall at her assisted living [facility], it is unclear if this was a mechanical fall, presyncope, or syncopal event at this time. She is admitted for new diagnosis of AFib with RVR under observation status. 1. Atrial fibrillation with rapid ventricular response, unknown chronicity, present on admission, active -patient received 1 dose of IV diltiazem, started on metoprolol ER and will continue this to try and control her rate. -will obtain echocardiogram, risk stratify with A1c, TSH, and lipid panel. TSH already performed by emergency room is unremarkable. -move repeat troponin at 8 hours after previous to ensure no troponin elevations -chads Vasc is currently 4, however patient has had multiple falls over the past year, and will need to discuss risk and benefits with the son regarding anticoagulation. She also does not have a current primary care provider. Pending further discussion regarding anticoagulation at this time, we will also see how she does with physical therapy as if she does well this may change her risk profile. 2. Essential Hypertension, active -patient has been off of anti hypertensives for the past year. Her blood pressure has been high since admission. -will start with oral metoprolol for rate control with the benefit being an antihypertensive, consider additional measures going forward once rate is further optimized. 3. Cognitive impairment, chronic, progressing - it is unclear at this time based on her presenting history and decline over the past year since stopping in antidepressant if her cognitive impairment is due to depression or a progressive dementia. Symptoms seem to be getting worse after she stopped her antidepressant, and patient does show evidence of depression including weight loss, lack of interest in activities, and relatively flat affect. -consider starting SSRI therapy to see if there is improvement, however she will need to establish care with a primary care provider she is likely developed good rapport with. -OT evaluation -patient further does have a urinary tract infection, she was given a dose of ceftriaxone in the emergency room and will continue at this time. Cultures were sent in the emergency room and we will have to see what grows. 4. Fall, acute -no acute injury sustained after a fall. This is her 2nd fall in the past year. It is unclear whether this fall was mechanical in nature, presyncope or an actual syncopal episode as the patient was not able to reliably recall the events that occurred this morning. -management as noted above. -PT evaluation 5. Urinary tract infection, acute on chronic, present on admission -given ceftriaxone in the emergency room, will continue at this time as she is not reliable in reporting whether she has symptoms and her cognition is somewhat impaired although this appears more chronic in nature. -will treat for 3 days at this point, pending culture and sensitivity. Code: Full, patient elects surrogate decision maker as her son, son reports that she has no other family DVT: Lovenox daily, pending further discussion on anticoagulation for atrial fibrillation Dispo: Admitted under observation status as her stay is not likely to exceed 2 midnights at this time, pending physical and occupational therapy recommendations given that the patient is living only in the assisted care facility this point and will require chronic medications to be resumed upon discharge. Scores CHADS-VASc Congestive heart failure: no Hypertension: yes Age 75 years or older: yes Diabetes mellitus: no Stroke, TIA, or TE: no Vascular disease: no Age 65 to 74 years: no Sex category (female): Female CHADS-VASc Score: 4
--- NOTE | 2019-05-07 17:48 | DI.ECHO.S_ITS ---
[place] +---------+ [facility] +---------+ : : [address] : : : : [id number] : : : : Phone: [phone]+ Echocardiogram Report + + :Name: SUMMER GUO Study Date: 05/08/2019 Height: 63 in : :[facility] Weight: 130 lb : : Gender: Female BSA: 1.6 m2 : :: 1935 Age: 83 yrs BP: 161/74 mmHg: :Reason For Study: Atrial fibrillation : :Ordering Physician: Magno : :Hospitalist Performed By: Carmela Rangel : :Referring: LORRAINE SHARP : + + Interpretation Summary Technically difficult due to patient mental status. Dr. Sharp came in to speak with patient twice about allowing the start/continuing of exam. Patient refused apical views. Measurements should be viewed as approximate due to off axis views. The ejection fraction is estimated to be 50-55%. Probable inferior hypokinesis. Left atrium appears moderately dilated visually. There is moderate mitral regurgitation. The aortic valve is mildly calcified. There is moderate tricuspid regurgitation. The right ventricular systolic pressure is estimated to be at least 37 mmHg based on an estimated right atrial pressure of 8 mm Hg. Procedure: A two-dimensional transthoracic echocardiogram with color flow and Doppler was performed. The study quality was technically adequate. The study quality was technically limited. The apical views were not obtained due to patient refusal.. The patient was in atrial fibrillation with heart rates between 82-104 bpm during the exam. Left Ventricle: The left ventricle is normal in size and wall thickness. The ejection fraction is estimated to be 50-55%. Probable inferior hypokinesis. Right Ventricle: Visually the right ventricle appears normal size. Atria: Left atrium appears moderately dilated visually. The right atrium is mildly dilated. Mitral Valve: There is moderate mitral annular calcification. There is moderate mitral regurgitation. Aortic Valve: The aortic valve is not well visualized. The aortic valve is mildly calcified. Tricuspid Valve: The tricuspid valve is not well visualized, but is grossly normal. There is moderate tricuspid regurgitation. Multiple regurgitant jets visualized. The right ventricular systolic pressure is estimated to be at least 37 mmHg based on an estimated right atrial pressure of 8 mm Hg. Pulmonic Valve: The pulmonic valve is not well visualized. Great Vessels: The aortic root is normal size. The ascending aorta could not be visualized. The IVC is of normal diameter and collapses less than 50% with a sniff. This suggests a right atrial pressure of 8 mm Hg. Pericardium/ Pleura There is no pericardial effusion. MMode/2D Measurements & Calculations LVIDd: 3.7 cm LVOT diam: 1.9 cm LVIDs: 2.7 cm Ao root diam: 2.8 cm FS: 26.0 % IVSd: 0.94 cm LVPWd: 0.82 cm LV paulino. diameter/BSA (cm/m^2): 2.3 LV sys. diameter/BSA (cm/m^2): 1.7 LA dimension: 4.3 cm RA long axis: 4.8 cm LA A4 area: 31.5 cm2 RA area: 16.5 cm2 LA length (vol): 6.2 cm RA vol: 48.1 ml RA : 29.9 ml/m2 IVC diam: 2.0 cm Doppler Measurements & Calculations LVOT Max Miguel: 80.0 cm/sec TR max miguel: 267.9 cm/sec LV V1 max P.6 mmHg TR max P.8 mmHg LV V1 VTI: 12.3 cm PA V2 max: 80.0 cm/sec PA V2 mean: 47.8 cm/sec PA mean P.1 mmHg PA pr(Accel): 51.0 mmHg SV(LVOT): 35.1 ml Reading Physician:02:05 PM
[2019-05-07] MEDS: ACETAMINOPHEN 325 MG TABLET 650 MG PO (19:27)
[2019-05-07 20:31] LABS: Troponin I < 0.012 ng/mL (0.01-0.034)
[2019-05-07] MEDS: MELATONIN 3 MG TABLET 6 MG PO (20:42)
--- NOTE | 2019-05-07 23:57 | PC.NURSE ---
Admission Note: Pt admitted to ICU for a-fib RVR. Pt oriented to self only, disoriented to date and place. Pt forgetful, poor historian. Admission assessment information received from pt's son Benjamin. Pt resistant to care, attempting unsafe ambulation at times. Discussed fall safety with pt. Bed-alarm, chair alarm and observation used at all times. Pt received po metoprolol with HR now 70s a-fib. Pt tolerating diet. Voiding in bathroom without difficulty. Call light in reach, pt is not using it. Bed alarm on and functioning. Will continue to monitor, notify MD with changes.
[2019-05-08] VITALS (14 sets, daily range): BP systolic 106–161; BP diastolic 58–88; PULSE 70–126; RESP 15–20; TEMP 36.1–37.2; O2SAT 95–99; BMI 23.0
[2019-05-08 04:55] LABS: Add Manual Diff / Slide Review NO; Basophils Absolute Auto 0 /uL (0-100); Basophils Percent Auto 0.4 % (0-2); Eosinophils Absolute Auto 100 /uL (0-450); Eosinophils Percent Auto 1.1 % (2-4); Hematocrit 41.8 % (36-46); Lymphocytes Absolute Auto 900 /uL (1100-4500); Lymphocytes Percent Auto 17.4 % (25-40); Mean Corpuscular HGB Conc 33.4 % (30-36); Mean Corpuscular Hemoglobin 31.5 PG (26-34); Mean Corpuscular Volume 94.4 fL (80-100); Monocytes Absolute Auto 800 /uL (0-900); Monocytes Percent Auto 14.2 % (3-14); Neutrophils Absolute Auto 3600 /uL (1500-7000); Neutrophils Percent Auto 66.9 % (50-75); Platelet Count 147 X10^3/uL (150-400); Red Blood Cell Count 4.42 X10^6/uL (4.0-5.2); Red Cell Distribution Width 13.7 % (11.6-14.8); White Blood Cell Count 5.3 X10^3/uL (4.5-11.0)
[2019-05-08 05:05] LABS: Alanine Aminotransferase 18 IU/L (<35); Albumin 3.4 g/dL (3.5-5.0); Albumin Globulin Ratio 1.2 (1.0-2.8); Alkaline Phosphatase 71 U/L (38-126); Aspartate Aminotransferase 27 IU/L (14-36); BUN Creatinine Ratio 37.1 (6-22); Bilirubin Total 1.1 mg/dL (0.2-1.3); Bilirubin Unconjugated 1.2 mg/dL (0.0-1.1); Blood Urea Nitrogen 26 mg/dL (7-17); Calcium 9.1 mg/dL (8.4-10.2); Carbon Dioxide 30 mmol/L (22-32); Chloride 103 mmol/L (98-107); Cholesterol 128 mg/dL (140-199); Estimated Glomerular Filt Rate > 60.0 mL/min (>60); Globulin 2.9 g/dL (1.7-4.1); Glucose 101 mg/dL (80-110); HDL Cholesterol 43 mg/dL (40-60); HEMOLYSIS < 15 (0-50); LDL Cholesterol Calculated 75 mg/dL (<100); Magnesium 2.2 mg/dL (1.6-2.3); Potassium 4.5 mmol/L (3.4-5.1); Sodium 138 mmol/L (137-145); Total Protein 6.3 g/dL (6.3-8.2); Triglycerides 52 mg/dL (35-150)
[2019-05-08 05:10] LABS: Hemoglobin A1C% w Est Avg Glu 5.2 % (4.0-6.0)
[2019-05-08 05:49] LABS: TSH w/ Reflex to FT4 1.95 uIU/mL (0.47-4.68)
--- NOTE | 2019-05-08 06:30 | PC.NURSE ---
Slitting And Shipping Supervisor Note-Patient dozed intermittently overnight, is oriented to self, month, but not place or situation, restless, impulsive, and sometimes agitated when awake. Remains A-fib, rate 70s-90s at rest, increases to 120s when OOB. Needs SBA assist to BR, refuses to use walker, request staff quit crowding me during assistance. Denies pain, palpitation, dyspnea, or dizziness.
[2019-05-08] MEDS: ENOXAPARIN 40 MG/0.4 ML SYRINGE SUBCUT (07:49)
[2019-05-08] MEDS: METOPROLOL ER 25 MG TABLET PO ×2 (07:49→10:01)
[2019-05-08] MEDS: SODIUM CHLORIDE 0.9% FLUSH 10 ML IV ×2 (07:49→20:32)
--- NOTE | 2019-05-08 09:38 | PT.IIE ---
Surgical History (Last Reviewed 05/07/19 @ 14:13 by MOIRA Landon) Hx of eye surgery (Resolved Unknown) Hx of hysterectomy (Resolved Unknown) Medical History (Last Reviewed 05/07/19 @ 14:13 by MOIRA Landon) Anxiety (Chronic Unknown) Chickenpox (Resolved) Depression (Chronic Unknown) Frequent UTI (Chronic Unknown) Hypertension (Chronic ~2007) Measles (Resolved) Physical Therapy Inpatient Evaluation/Re-Eval M1 PT/OT-IP Prior Functional Status Start: 05/08/19 12:27 Freq: NEEDED Status: Active Protocol: Document 05/08/19 09:38 AB (Rec: 05/08/19 13:03 AB [id number]) Medical Review Prior Functional Status Medical History Reviewed Yes Communication able to make needs known but with confusion Mobility and Gait pt unable to give an accurate PLOF and home set up details due to memory issues but pt stated that she is independent with mobility without AD but also stated that she had used a FWW and a SPC Social History Household Members none Living Arrangements Care Home Facility Number of Stairs To Enter/Railing? per EMR: pt lives at [facility] living Home Environment Walk in Shower M2 PT-IP Current Condition Start: 05/08/19 12:27 Freq: NEEDED Status: Active Protocol: Document 05/08/19 09:38 AB (Rec: 05/08/19 13:03 AB [id number]) Physical Therapy Current Condition Current Condition Evaluation Date 05/08/19 Treatment Diagnosis A-fib; difficulty in walking Onset Date 05/07/2019 Precautions Other Precautions Falls M3 PT-IP Subjective Start: 05/08/19 12:27 Freq: NEEDED Status: Active Protocol: Document 05/08/19 09:38 AB (Rec: 05/08/19 13:03 AB [id number]) Subjective Physical Therapy Visit Type Type Initial Evaluation Visit Start Time 09:38 Visit Stop Time 10:05 Total Visit Minutes 27 Number of INFECTIOUS DISEASE TECHNICIAN Visits 0 Therapy Pain Assessment Pain Present Pain Present Denied Pain M4 PT-IP Mobility and Gait Start: 05/08/19 12:27 Freq: NEEDED Status: Active Protocol: Document 05/08/19 09:38 AB (Rec: 05/08/19 13:03 AB [id number]) PT-Bed Mobility Assessment Supine to Sit Supine to Sit Standby Assistance Sit to Supine Sit to Supine Standby Assistance PT-Transfer Assessment Sit to and From Stand Sit to and from Stand Contact Guard Assistance,1 Person Assistance,Use of Upper Extremities Equipment Transfer Assistive Device None,Gait Belt,Front Wheeled Walker Orthotic/Prosthetic Devices or Brace: No Transfers Transfer Destination Bed Transfer Technique ambulated Transfer Ability Level of Assist Contact Guard Assistance, Minimal Assistance,1 Person Assistance,Use of Upper Extremities Comments Mobility Comments pt found sitting on the bed. completed sit to stand CGA. ambulated without AD to the bed min A and cues. pt tends to hold on to the bed/rail for assistance and presents with very unsteady gait. completed bed mobility supine <>sit SBA . completed sit to stand from the EOB CGA and ambulated in room using FWW CGA ~ 25 ft and cues for safety. pt agreed to stay up on chair. positioned pt on chair. chair alarm on. call light and table placed within reach. Gait Assessment Gait Gait Assistance Required: Contact Guard Assist,Minimum Assistance,1 Person Assist Distance (Feet) 25 Able to Maintain Weight Bearing Status Yes During Gait Assistive Devices Assistive Device None,Gait Belt,Front Wheeled Walker Gait Deviations General Gait Pattern Antalgic,Decreased Stride Length,Decreased Feet Clearance Factors Limiting Gait Function Factors Limiting Gait Function Decreased Activity Tolerance, Decreased Strength,Difficulty Following Directions,Poor Balance,Poor Safety Awareness Comments Gait Comments pls refer to mobility section for details. PT-Balance Assessment Sitting Balance and Reactions Static Sitting Balance Ability Good Dynamic Sitting Balance Ability Good Standing Balance and Reactions Static Standing Balance Ability Fair Dynamic Standing Balance Ability Poor Device Used without AD M5 PT-IP Objective Assessments Start: 05/08/19 12:27 Freq: NEEDED Status: Active Protocol: Document 05/08/19 09:38 AB (Rec: 05/08/19 13:03 AB [id number]) Orientation Orientation/Cognition Level of Alertness Confusional State Orientation Name Safety Awareness Decreased Safety Awareness Memory Description Short Term Impaired,Baby Attendant Impaired Comments pt does not know where she is and where she lives, does not know why she is in the hospital, does not recall falling Gross Range of Motion Lower Extremity ROM Assessment Within Functional Limits Strength Lower Extremity Strength Assessment Bilaterally Impaired Hip 3+/5 Knee 3+/5 Ankle 3+/5 Muscle Tone Muscle Tone WNL Yes M6 PT-IP Treatment Start: 05/08/19 12:27 Freq: NEEDED Status: Active Protocol: Document 05/08/19 09:38 AB (Rec: 05/08/19 13:03 AB [id number]) Physical Therapy Treatment Education Education Provided Safety M7 PT-IP Assessment and Plan Start: 05/08/19 12:27 Freq: NEEDED Status: Active Protocol: Document 05/08/19 09:38 AB (Rec: 05/08/19 13:03 AB [id number]) PT Summary Assessment and Plan Potential Rehabilitation Potential Good Status of Condition at Evaluation Evolving Summary Impairments Pain,ROM,Strength,Balance, Coordination,Sensation,Tone, Cognition,Bed Mobility, Transfers,Gait,Activity Tolerance Assessment Summary pt requiring CGA to min A with mobility and cues with all tasks for safety. pt has decrease cognition and safety awareness affecting mobility. pt is very unsteady with ambulation without use of AD and safer with use of FWW but carryover with use of FWW will be affected due to decrease cognitive level and pt may not remember to use FWW at all time. pt is a high fall risk. If pt is going back to independent living situation, she has to be independent with ambulation without AD but at this time is needing a FWW for stability and safety and will need 24/7 assistance. pt will benefit from SNF rehab to improve functional independence and decrease fall risk. Goals Bed Mobility Goal Independent Transfer Goal Independent,Front Wheeled Walker Gait Goal Independent,Front Wheel Walker Gait Distance 200 Other Goals to improve ambulation without AD 200 ft SBA Days to Meet Goals 5 Frequency of Treatment Frequency Of Treatment Once a Day Treatment Plan Physical Therapy Treatment Plan Bed Mobility Training,Transfer Training,Gait Training, Therapeutic Exercise,Balance Retraining,Discharge Planning, Hot or Cold Pack,Neuromuscular Re-ed,Coordination Retraining Other Recommendations and Next Treatment standing balance, ambulation Focus Recommendations To Nursing Amount of Assist Needed 1 Person Assist Discharge Recommendations PT Discharge Recommendations SNF Rehab Transportation Needs at Discharge Wheelchair/Cabulance
--- NOTE | 2019-05-08 11:45 | DIET.PN ---
Dietary Progress Note Assessment: 83y F admitted for GLF c afib referred to nutrition for reported 30# wt loss. Per [facility] records, pt is weight stable, even in + for past 7mo (01/03/19: 55kg; 10/20/18: 54.2kg; 07/12/17: 63.7kg) greatest loss was 16% drop over 18 months, and pt has increased weight by 4kg since, which does not meet PCM criteria. Per nursing, pt ate 100% breakfast and much of dinner last night. HT: 160cm WT: 58.9kg UBW: 63kg BMI: 23.0 MNA: 6 Samson: 19 Nutrition Diagnosis: none at this time Interventions: 1. If POs fall to <75%, consider ONS Diet Order: EER: 1400kcal, 53g PRO (0.9g/kg), 2 L fluids Monitoring/Evaluations: POs
--- NOTE | 2019-05-08 12:08 | CM.DANOTE ---
Addendum entered by Meggan Justice R.N. 05/08/19 15:49: CM/RN called [facility] to get SNF prior authorization started. Clinicals, OT and PT notes sent to [facility] to Review. 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 [facility] Case manger is Marjorie phone number [phone]. CM/RN left voice message for [facility]. CM/Rn spoke with patients son about D/C plan. patients son is concerned about patient going back to her home without support. Patients son is working on getting patient into a LTC facility or Memory care but it is taking time and he is not sure about the finacial piece. CM/ RN asked if he would like to pursue a SNF option to help his mother with building strength while he looks for a snf placement option. If [facility] denies SNF Prior Auth patients son is ok with D/.C his mother back to [facility] with HH as a secondary plan for D/C. CM department will follow up with [facility] tomorrow to check on prior Auth. meggan Justice RN Original Note: DCP assessment: EMR reviewed: Patient is a 83 yr old female who was admitted for Afib with RVR. Patients PCP is not noted in EMR. CM/Rn attempted to meet with patient at the bedside to discuss D/C plan. Patient was alert and oriented x1 patient not able to identify where she was or what the current year was. patient is not an accurate historian and is very confused about where she is and her Dx. Patients son is her person to notify in her EMR- CM/Rn left voice mail with her son Mikhail to discuss D/C plan to SNF and a adjunct faculty for medical terminology plan after that. PT and OT notes pending. I: [facility] MCR advantage and self pay Plan: D/C to SNF when patient is medically stable. CM department will need a [facility] Prior Auth for approval for SNF placement... CM/Rn will send clinicals to [facility] to review once they are ready Meggan Justice RN Discharge Planning/Care Management CM Discharge Assessment Start: 05/08/19 12:04 Freq: Status: Active Protocol: Document 05/08/19 12:04 HS (Rec: 05/08/19 12:08 HS [id number]) Discharge Planning Assessment Assigned Cellular Biologist Meggan Justice RN DPOA/Assigned Designee Name Mikhail Sanchez (son) Contact Information [phone] Advance Directives? No Advance Directives on File No History Provided By Patient,Medical Record Has Patient been admitted in last 30 No days? Prior Living Arrangements [facility] Facility Comment Patient lives at [facility] Household Members none Type of transporation used prior to Relies on Others admit Facility Name Admitted From: [facility] Willing to Return to Facility? Yes Independent with ADL's No: Has help with ADL's at [facility] lives at Is patient alert and oriented? No: Patient was alert and Oriented X1 during visit Needs Assistance With Meal Prep,Managing Medications ,Home Chores / Shopping Caregiver for Another No DME Already Rented / Owned FWW / Walker,Cane Patient/Family Preference [facility] Facility Barriers to Discharge Yes Comment Patient is unable to make a determination on what she would like to do as a D/C plan since she doesn't recognize that she is in the hospital. CM/Rn will reach out to patients son and work on D/C plan Discharge Plan [facility] Facility Referrals Initiated [facility] If patient plan is SNF: Has PASSR been No: Need to finalize SNF D/C completed? plan Whiteboard Updated in Patient Room with Yes name and ext. # of Cellular Biologist Review Status In Process Next Review Type Continued Stay Review
--- NOTE | 2019-05-08 14:22 | OT.IP.EVAL ---
Past Medical History (Last Reviewed 05/07/19 @ 14:13 by MOIRA Landon) Anxiety (Chronic Unknown) Chickenpox (Resolved) Depression (Chronic Unknown) Frequent UTI (Chronic Unknown) Hypertension (Chronic ~2007) Measles (Resolved) Surgical History (Last Reviewed 05/07/19 @ 14:13 by MOIRA Landon) Hx of eye surgery (Resolved Unknown) Hx of hysterectomy (Resolved Unknown) Occupational Therapy Inpatient Evaluation/Re-Eval M1 PT/OT-IP Prior Functional Status Start: 05/08/19 15:08 Freq: NEEDED Status: Active Protocol: Document 05/08/19 15:08 [facility]3] (Rec: 05/08/19 15:37 [facility]3] [id number]) Medical Review Prior Functional Status Medical History Reviewed Yes Communication able to make needs known but with confusion Mobility and Gait pt unable to give an accurate PLOF and home set up details due to memory issues but pt stated that she is independent with mobility without AD but also stated that she had used a FWW and a SPC Activities of Daily Living and IADL's Per case management pt at [facility] had assist for showers and medications. Social History Household Members none Living Arrangements Snf Facility Number of Stairs To Enter/Railing? per EMR: pt lives at [facility] independent living Home Environment Walk in Shower M2 OT-IP Current Condition Start: 05/08/19 15:08 Freq: Status: Active Protocol: Document 05/08/19 15:08 [facility]3] (Rec: 05/08/19 15:37 [facility]3] [id number]) Occupational Therapy Current Condition Current Condition Evaluation Date 05/08/19 Treatment Diagnosis GLF, A-fib with RVR, UTI Diagnosis Onset Date 05/07/19 Weight Bearing Status Weight Bearing Status Weight Bear as Tolerated M3 OT- IP Subjective and Pain Start: 05/08/19 15:08 Freq: Status: Active Protocol: Document 05/08/19 15:08 [facility]3] (Rec: 05/08/19 15:37 [facility]3] [id number]) OT- Subjective Occupational Therapy Visit Type Type Initial Evaluation Visit Start Time 14:05 Visit Stop Time 14:22 Total Visit Minutes 17 Occupational Therapy Visit Comments Patient Comments Pt agreed to talk to therapist . Patient/Caregiver Goals Pt wanting her son to come and see her. OT Pain Assessment Pain When Pain Assessed At Rest Pain Present Pain Present Denied Pain M4 OT- IP ADL's Start: 05/08/19 15:08 Freq: Status: Active Protocol: Document 05/08/19 15:08 [facility]3] (Rec: 05/08/19 15:37 [facility]3] [id number]) OT ALK-Mfgf-Tijlexe General Evaluation Self-Feeding Ability Independent Comments OT Self-Feeding Comments Pt able to independently use spoon to eat her soup. OT ADL-Grooming Comments OT Grooming Comments Pt refusing to do at this time . OT ADL-Oral Care Comments Oral Care Comments Not performed. OT ADL-Dressing Comments OT Dressing Comments Pt able to pull down her brief and pull back up while use of the toilet. OT ADL-Toileting General Evaluation Toileting Ability Standby Assistance Devices Toileting Assistive Devices Grab Bars Comments OT Toileting Comments Pt insistent of not having therapist/anyone present as she uses the toilet and even pushing the therapist towards the door. Nursing aid present in the room and with door cracked, pt able to sit down, use the toilet, and stand back up on her own with distant supervision. OT ADL-Bathing Comments OT Bathing Comments Pt initially agreed to shower and then after IV covered with plastic focused on trying to take it off and then refuses to shower. M5 OT- IP IADL's Start: 05/08/19 15:08 Freq: Status: Active Protocol: Document 05/08/19 15:08 [facility]3] (Rec: 05/08/19 15:37 [facility]3] [id number]) OT-Instrumental Activities of Daily Living Home Safety Awareness Awareness of Need for Assistance at Home Decreased Awareness Ability to Problem Solve Emergency Unable to Problem Solve Situations Medication Management Medication Management Caregiver Administers Money Management Money Management Caregiver Provides Assistance Meal Preparation Meal Preparation Caregiver Provides Assist Spinneret Cleaner Spinneret Cleaner Caregiver Provides Assist Driving Driving Caregiver Provides Assist M6 OT- IP Functional Cognition Start: 05/08/19 15:08 Freq: Status: Active Protocol: Document 05/08/19 15:08 [facility]3] (Rec: 05/08/19 15:37 [facility]3] [id number]) Cognitive Factors Limiting Selfcare Function Cognitive Ability Level of Alertness Confusional State Patient Orientation Name Attention Span Ability Capable of Focused Attention, Unable to Sustain Attention Ability to Follow Commands Able to Follow One Step Commands with Increased Time, Able to Follow One Step Commands with Repetition Memory Description Immediate Impaired,Short Term Impaired,Working Impaired Safety Awareness Underestimates Need for Assistance Problem Solving Ability Unable to Identify Errors, Needs Assist to Identify Solutions Executive Function Ability Unable to Switch Focus,Unable to Filter Distractions,Unable to Make Plans,Unable to Organize Plans,Unable to Remember Details Cognitive Comments Cognitive Assessment Comments Pt mainly orientated to name. Pt believes that she is in her room. When therapist showed pt name tag which read [facility] still not able to figure out where she was at . Pt easily distracted and at times fixated on asking where her son is or trying to take off the IV. OT- Vision and Hearing OT- Vision Assessment Vision Assessment Comments Pt able to read printon name tag. M7 OT- IP Mobility and Balance Start: 05/08/19 15:08 Freq: Status: Active Protocol: Document 05/08/19 15:08 [facility]3] (Rec: 05/08/19 15:37 [facility]3] [id number]) OT-Transfer Assessment Sit to and From Stand Sit to and from Stand Standby Assistance,Contact Guard Assistance Transfers Transfer Ability Standby Assistance,Contact Guard Assistance Technique Transfer Destination Chair,Toilet Transfer Technique Stand Step Pivot Devices Transfer Assistive Devices Gait Belt Comments Mobility Comments Pt prior did not use a device and due to decreased STM will have difficulty to remember to use a device therefore assessed pt without a device. Pt able to stand with SBA. Able to walk to the bathroom with one loss of balance but able to steady herself while holding to the counter and wall. Pt needing from occasional CGA to distant SBA for safety. OT- Balance Assessment Sitting Balance and Reactions Static Sitting Balance Ability Good Standing Balance and Reactions Static Standing Balance Ability Fair M8 OT- IP Objective Assessments Start: 05/08/19 15:08 Freq: Status: Active Protocol: Document 05/08/19 15:08 [facility]3] (Rec: 05/08/19 15:37 [facility]3] [id number]) OT Gross Range of Motion Upper Extremity Range of Motion ROM Impairments Per observation of functinal task, pt WFL form elbow to distal. OT Strength Comments Strength Comments Pt having difficulty to follow directions for formal MMT, pt 's strength at least 3+/5. OT- Coordination Assessment Comments Coordination Comments Pt having difficulty to clasp her watch back on her right wrist with left hand. M9 OT- IP Assessment and Plan Start: 05/08/19 15:08 Freq: Status: Active Protocol: Document 05/08/19 15:08 [facility]3] (Rec: 05/08/19 15:37 [facility]3] [id number]) OT Summary Assessment and Plan Potential Rehabilitation Potential Fair Analytic Complexity at Evaluation Low Summary OT Impairments Strength,Balance,Functional Cognition,Functional Mobility, Grooming,Dressing,Toileting, Bathing,Toilet Transfers, Shower Transfers,Activity Tolerance Progress Towards Goals Slow Progress due to Medical Issues,Slow Progress due to Activity Tolerance,Slow Progress due to Cognition Assessment Summary Pt low complexity and main barriers are decreased functional cognition , dynamic balance, activity tolerance, and now needing 24/7 assist for needs. Pt would benefit from skilled rehab to maximize her strength, endurance, and balance as prior pt able to ambulate for ADl needs independently and do her dressing /toileting/grooming needs on her own. Therefore suggest skilled rehab versus 24/7 assist versus memory care . Goals Grooming Goal Standby Assistance Dressing Goal Standby Assistance Toileting Goal Standby Assistance Bathing Goal Minimal Assistance Toilet Transfer Goal Standby Assistance Shower Transfer Goal Contact Guard Assistance Days to Meet Goals 5 Frequency of Treatment Frequency Of Treatment Once a Day Treatment Plan OT Treatment Plan ADL Training,Functional Cognition Training,Functional Mobility,Patient/Family Education,Discharge Planning Other Treatment Recommendations and Next shower Treatment Focus Discharge Recommendations OT Discharge Recommendations SNF Rehab Transportation Needs at Discharge Private Vehicle
[2019-05-08] MEDS: CEFTRIAXONE 1 GM/50 ML FROZ.PIGGY IV (14:24)
--- NOTE | 2019-05-08 15:11 | PC.NURSE ---
Day Shift Transferred to room 224 from room 227 at this time. All belongings with pt including glasses and clothing. Report given to Lesly TOVAR. Pt's son at bedside. Chair alarm is on, pt remains very impulsive and confused.
--- NOTE | 2019-05-08 16:05 | P.PN_ITS ---
Subjective Subjective Date Patient Seen: 05/08/19 Time Patient Seen: 08:20 Interval history: Almita Sanchez is an 83-year-old female with a past medical history of anxiety/depression, off medication for approximately 1 year, hypertension also off of medication for the past year and frequent urinary tract infections in the past who presented after a fall at her assisted living facility. On arrival she was noted to be in AFib with RVR. She is seen for follow-up today. She has since had a fairly controlled rate on oral metoprolol. This morning she was increased to 50 mg twice daily with fairly controlled rates. Her echocardiogram revealed an EF of 55% with possible inferior hypokinesis. Study is somewhat limited as the views were not technically correct due to patient's mental status. She needed to be convinced twice to undergo her echocardiogram, and refused apical views. Discussion in convincing her was very circular in nature and she could not clearly articulate why she was refusing. She was seen by physical therapy who recommended SNF rehab. Currently authorization is pending with [facility]. Exam Vital Signs (past 8 hours): - 05/08/19 08:14 05/08/19 12:00 05/08/19 12:10 Temperature 97.5 F L Pulse Rate 126 H Respiratory Rate 18 Blood Pressure 161/74 H Pulse Oximetry 95 95 96 05/08/19 15:15 Temperature 98.9 F Pulse Rate 70 Respiratory Rate 17 Blood Pressure 106/58 L Pulse Oximetry 97 Oxygen Delivery Method Room Air Oxygen Flow Rate 0 Narrative Exam Narrative: GENERAL APPEARANCE: Well developed, well nourished, elderly female in no acute distress. SKIN: Inspection of the skin reveals no rashes, ulcerations or petechiae. HEENT: The sclerae were anicteric and conjunctivae were pink and moist. Extraocular movements were intact and pupils were equal, round with normal accommodation. External inspection of the ears and nose showed no scars, lesions, or masses. Lips, teeth, and gums showed normal mucosa. The oral mucosa, hard and soft palate, tongue and posterior pharynx were unremarkable. NECK: Supple and symmetric. There was no thyroid enlargement, and no tenderness, or masses were felt. CHEST: Normal AP diameter and normal contour without any kyphoscoliosis. LUNGS: Auscultation of the lungs revealed no wheezes, rhonchi, or rales. CARDIOVASCULAR: Tachycardic, irregularly irregular rhythm without murmurs rubs or gallops. ABDOMEN: Soft and nontender with normal bowel sounds. No ascites was noted. MUSCULOSKELETAL: There was no tenderness or effusions noted. Muscle strength and tone were normal. EXTREMITIES: No cyanosis, clubbing or edema. NEUROLOGIC: Alert and oriented x1-2 (varies between encounters). Did not attempt to name the date, no focal neurological deficits and cranial nerves 2-12 are grossly intact bilaterally. Objective Labs Result Diagrams: 05/08/19 04:40 05/08/19 04:40 Labs: Laboratory Results - last 24 hr 05/07/19 05/08/19 05/08/19 20:02 04:40 04:40 WBC 5.3 RBC 4.42 Hgb 14.0 Hct 41.8 MCV 94.4 MCH 31.5 MCHC 33.4 RDW 13.7 Plt Count 147 L Neut % (Auto) 66.9 Lymph % (Auto) 17.4 L [place] % (Auto) 14.2 H Eos % (Auto) 1.1 L Baso % (Auto) 0.4 Neut # (Auto) 3600 Lymph # (Auto) 900 L [place] # (Auto) 800 Eos # (Auto) 100 Baso # (Auto) 0 Sodium 138 Potassium 4.5 Chloride 103 Carbon Dioxide 30 BUN 26 H Creatinine 0.70 Estimated GFR > 60.0 BUN/Creatinine Ratio 37.1 H Glucose 101 Hemoglobin A1c Calcium 9.1 Magnesium 2.2 Total Bilirubin 1.1 Conjugated Bilirubin 0.0 Unconjugated Bilirubin 1.2 H AST 27 ALT 18 Alkaline Phosphatase 71 Troponin I < 0.012 Total Protein 6.3 Albumin 3.4 L Globulin 2.9 Albumin/Globulin Ratio 1.2 Triglycerides 52 Cholesterol 128 L LDL Cholesterol, Calc 75 HDL Cholesterol 43 TSH 05/08/19 05/08/19 04:40 04:40 WBC RBC Hgb Hct MCV MCH MCHC RDW Plt Count Neut % (Auto) Lymph % (Auto) [place] % (Auto) Eos % (Auto) Baso % (Auto) Neut # (Auto) Lymph # (Auto) [place] # (Auto) Eos # (Auto) Baso # (Auto) Sodium Potassium Chloride Carbon Dioxide BUN Creatinine Estimated GFR BUN/Creatinine Ratio Glucose Hemoglobin A1c 5.2 Calcium Magnesium Total Bilirubin Conjugated Bilirubin Unconjugated Bilirubin AST ALT Alkaline Phosphatase Troponin I Total Protein Albumin Globulin Albumin/Globulin Ratio Triglycerides Cholesterol LDL Cholesterol, Calc HDL Cholesterol TSH 1.95 Assessment & Plan Assessment & Plan narrative: Almita Sanchez is an 83-year-old female with a past medical history of anxiety/depression, off medication for approximately 1 year, hypertension also off of medication for the past year and frequent urinary tract infections in the past who presented after a fall at her assisted living facility, it is unclear if this was a mechanical fall, presyncope, or syncopal event at this time. She is admitted for new diagnosis of AFib with RVR under observation status. 1. Atrial fibrillation with rapid ventricular response, unknown chronicity, present on admission, active -patient received 1 dose of IV diltiazem, started on metoprolol ER and have now increased to 50 mg twice a day with adequate rate control. -echocardiogram showing an EF of 50-55%, with possible inferior hypokinesis and a dilated left atrium. -troponin was negative x2 -patient does not clinically appear to be volume overloaded at this time and there is no need for diuretic therapy. -chads Vasc is currently 4, however patient has had multiple falls over the past year, and will need to discuss risk and benefits with the son regarding anticoagulation. She also does not have a current primary care provider. Pending further discussion regarding anticoagulation at this time, we will also see how she does with physical therapy as if she does well this may change her risk profile. 2. Essential Hypertension, active -patient has been off of anti hypertensives for the past year. Her blood pressure has been high since admission but now improved with oral metoprolol -Her blood pressure is now borderline at 106/58 on adequate rate control. No further interventions necessary at this time. 3. Cognitive impairment, chronic, progressing - it is unclear at this time based on her presenting history and decline over the past year since stopping in antidepressant if her cognitive impairment is due to depression or a progressive dementia. Symptoms seem to be getting worse after she stopped her antidepressant, and patient does show evidence of depression including weight loss, lack of interest in activities, and relatively flat affect. -consider starting SSRI therapy to see if there is improvement, however she will need to establish care with a primary care provider she is likely developed good rapport with. -OT evaluation pending -patient further does have a urinary tract infection, she was given a dose of ceftriaxone in the emergency room and will continue at this time for a total of 3 doses. Cultures were sent in the emergency room and we will have to see what grows. Currently cultures are growing gram-negative bacilli. 4. Fall, acute -no acute injury sustained after a fall. This is her 2nd fall in the past year. It is unclear whether this fall was mechanical in nature, presyncope or an actual syncopal episode as the patient was not able to reliably recall the events that occurred this morning. -management as noted above. -PT evaluation 5. Urinary tract infection, acute on chronic, present on admission -given ceftriaxone in the emergency room, will continue at this time as she is not reliable in reporting whether she has symptoms and her cognition is somewhat impaired although this appears more chronic in nature. -will treat for 3 days at this point, pending culture and sensitivity. Code: Full, patient elects surrogate decision maker as her son, son reports that she has no other family DVT: Lovenox daily, pending further discussion on anticoagulation for atrial fibrillation Dispo: Admitted under observation status as her stay is not likely to exceed 2 midnights at this time, currently recommended for SNF rehab, pending autho rization with [facility].
[2019-05-08] MEDS: METOPROLOL ER 25 MG TABLET 50 MG PO (20:32)
[2019-05-08] MEDS: MELATONIN 3 MG TABLET 6 MG PO (20:39)
[2019-05-09] VITALS (9 sets, daily range): BP systolic 126–159; BP diastolic 57–84; PULSE 70–100; RESP 18–20; TEMP 35.8–36.4; O2SAT 94–99
[2019-05-09] MEDS: ACETAMINOPHEN 325 MG TABLET 650 MG PO (00:05)
[2019-05-09 05:52] LABS: Alanine Aminotransferase 26 IU/L (<35); Albumin 3.7 g/dL (3.5-5.0); Albumin Globulin Ratio 1.2 (1.0-2.8); Alkaline Phosphatase 82 U/L (38-126); Aspartate Aminotransferase 36 IU/L (14-36); BUN Creatinine Ratio 28.8 (6-22); Bilirubin Total 0.9 mg/dL (0.2-1.3); Blood Urea Nitrogen 23 mg/dL (7-17); Calcium 9.3 mg/dL (8.4-10.2); Carbon Dioxide 32 mmol/L (22-32); Chloride 101 mmol/L (98-107); Estimated Glomerular Filt Rate > 60.0 mL/min (>60); Glucose 93 mg/dL (80-110); HEMOLYSIS < 15 (0-50); Magnesium 2.1 mg/dL (1.6-2.3); Potassium 4.4 mmol/L (3.4-5.1); Sodium 137 mmol/L (137-145); Total Protein 6.7 g/dL (6.3-8.2)
--- NOTE | 2019-05-09 06:16 | PC.NURSE ---
Pt with confusion overnight. Alternating from mild agitation to pleasantly confused. Pt not redirectable, I am going to Corrina Pt given tasks to do ie fold towels, wash counters. Pt then fell asleep in chair and then put herself into bed. Able to ambulate independently in room. Hx of falls before hospitalization, but refused gait belt and contact guard assist. Pt voiding adequate amounts, denies dysuria. Discharge pending insurance approval.
--- NOTE | 2019-05-09 07:06 | PC.NURSE ---
Final urine cx result reveal e.coli. Notified Dr. Berger via telephone and he stated pt was on appropriated antibiotics.
[2019-05-09] MEDS: METOPROLOL ER 25 MG TABLET 50 MG PO ×2 (09:04→21:08)
[2019-05-09] MEDS: ENOXAPARIN 40 MG/0.4 ML SYRINGE SUBCUT (09:04)
[2019-05-09] MEDS: SODIUM CHLORIDE 0.9% FLUSH 10 ML IV ×2 (09:04→19:14)
--- NOTE | 2019-05-09 10:29 | PC.NURSE ---
Patient has been calm this morning. She is steady on her feet and has been moving around independently. Patient is confused and does have some memory issues. She does have a chair alarm and bed alarm. She has been short with staff in the past but has been extremely, polite and doing well with all care. Patient is expected to go over to [facility] when her insurance approves this. Heart rate wnl and irregular.
--- NOTE | 2019-05-09 10:47 | PM.CHAP ---
Very pleasant visit this morning. Lots of stories about life in [place]. No complaints.
--- NOTE | 2019-05-09 11:15 | PT.IPTN ---
Physical Therapy Treatment Note M2 PT-IP Current Condition Start: 05/08/19 12:27 Freq: NEEDED Status: Active Protocol: Document 05/08/19 09:38 AB (Rec: 05/08/19 13:03 AB [id number]) Physical Therapy Current Condition Current Condition Evaluation Date 05/08/19 Treatment Diagnosis A-fib; difficulty in walking Onset Date 05/07/2019 Precautions Other Precautions Falls M3 PT-IP Subjective Start: 05/08/19 12:27 Freq: NEEDED Status: Active Protocol: Document 05/09/19 11:09 [facility] (Rec: 05/09/19 11:14 [facility] [email or web address]) Subjective Physical Therapy Visit Type Type Treatment Note Visit Start Time 10:40 Visit Stop Time 11:00 Total Visit Minutes 20 Number of CEMENT CONTRACTOR Visits 0 Physical Therapy Visit Comments Patient Comments pt sitting up in her bedside chair, doing well and agrees to PT Therapy Pain Assessment Pain When Pain Assessed At Rest Pain Present Pain Present Denied Pain M4 PT-IP Mobility and Gait Start: 05/08/19 12:27 Freq: NEEDED Status: Active Protocol: Document 05/08/19 09:38 AB (Rec: 05/08/19 13:03 AB [id number]) PT-Bed Mobility Assessment Supine to Sit Supine to Sit Standby Assistance Sit to Supine Sit to Supine Standby Assistance PT-Transfer Assessment Sit to and From Stand Sit to and from Stand Contact Guard Assistance,1 Person Assistance,Use of Upper Extremities Equipment Transfer Assistive Device None,Gait Belt,Front Wheeled Walker Orthotic/Prosthetic Devices or Brace: No Transfers Transfer Destination Bed Transfer Technique ambulated Transfer Ability Level of Assist Contact Guard Assistance, Minimal Assistance,1 Person Assistance,Use of Upper Extremities Comments Mobility Comments pt found sitting on the bed. completed sit to stand CGA. ambulated without AD to the bed min A and cues. pt tends to hold on to the bed/rail for assistance and presents with very unsteady gait. completed bed mobility supine <>sit SBA . completed sit to stand from the EOB CGA and ambulated in room using FWW CGA ~ 25 ft and cues for safety. pt agreed to stay up on chair. positioned pt on chair. chair alarm on. call light and table placed within reach. Gait Assessment Gait Gait Assistance Required: Contact Guard Assist,Minimum Assistance,1 Person Assist Distance (Feet) 25 Able to Maintain Weight Bearing Status Yes During Gait Assistive Devices Assistive Device None,Gait Belt,Front Wheeled Walker Gait Deviations General Gait Pattern Antalgic,Decreased Stride Length,Decreased Feet Clearance Factors Limiting Gait Function Factors Limiting Gait Function Decreased Activity Tolerance, Decreased Strength,Difficulty Following Directions,Poor Balance,Poor Safety Awareness Comments Gait Comments pls refer to mobility section for details. PT-Balance Assessment Sitting Balance and Reactions Static Sitting Balance Ability Good Dynamic Sitting Balance Ability Good Standing Balance and Reactions Static Standing Balance Ability Fair Dynamic Standing Balance Ability Poor Device Used without AD M5 PT-IP Objective Assessments Start: 05/08/19 12:27 Freq: NEEDED Status: Active Protocol: Document 05/08/19 09:38 AB (Rec: 05/08/19 13:03 AB [id number]) Orientation Orientation/Cognition Level of Alertness Confusional State Orientation Name Safety Awareness Decreased Safety Awareness Memory Description Short Term Impaired,Long-Term Impaired Comments pt does not know where she is and where she lives, does not know why she is in the hospital, does not recall falling Gross Range of Motion Lower Extremity ROM Assessment Within Functional Limits Strength Lower Extremity Strength Assessment Bilaterally Impaired Hip 3+/5 Knee 3+/5 Ankle 3+/5 Muscle Tone Muscle Tone WNL Yes M6 PT-IP Treatment Start: 05/08/19 12:27 Freq: NEEDED Status: Active Protocol: Document 05/09/19 11:09 [facility] (Rec: 05/09/19 11:14 [facility] [email or web address]) Physical Therapy Treatment Exercises Exercises Ankle Pumps Education Education Provided Safety Other Treatments Other Treatment Performed transfers from sit-stand and standing for qiana garcía M7 PT-IP Assessment and Plan Start: 05/08/19 12:27 Freq: NEEDED Status: Active Protocol: Document 05/09/19 11:09 [facility] (Rec: 05/09/19 11:14 [facility] [email or web address]) PT Summary Assessment and Plan Potential Rehabilitation Potential Good Status of Condition at Evaluation Evolving Summary Impairments Pain,ROM,Strength,Balance, Coordination,Sensation,Tone, Cognition,Bed Mobility, Transfers,Gait,Activity Tolerance Assessment Summary pt was CGA for ambulation and did well with stability. She is confused though and her decreased cognition places her at risk with mobility. She was not unsteady today with gait without a Assistive device. Walked with her arms crossed over her chest. Ambulated 250 [address] Goals Bed Mobility Goal Independent Transfer Goal Independent,Front Wheeled Walker Gait Goal Independent,Front Wheel Walker Gait Distance 200 Other Goals to improve ambulation without AD 200 ft SBA Days to Meet Goals 5 Frequency of Treatment Frequency Of Treatment Once a Day Treatment Plan Physical Therapy Treatment Plan Bed Mobility Training,Transfer Training,Gait Training, Therapeutic Exercise,Balance Retraining,Discharge Planning, Hot or Cold Pack,Neuromuscular Re-ed,Coordination Retraining Other Recommendations and Next Treatment standing balance, ambulation Focus Recommendations To Nursing Amount of Assist Needed 1 Person Assist Discharge Recommendations PT Discharge Recommendations SNF Rehab Transportation Needs at Discharge Wheelchair/Cabulance
--- NOTE | 2019-05-09 11:27 | OT.IP.TRT ---
Occupational Therapy Treatment Note M2 OT-IP Current Condition Start: 05/08/19 15:08 Freq: Status: Active Protocol: Document 05/08/19 15:08 [facility] (Rec: 05/08/19 15:37 [facility] [email or web address]) Occupational Therapy Current Condition Current Condition Evaluation Date 05/08/19 Treatment Diagnosis GLF, A-fib with RVR, UTI Diagnosis Onset Date 05/07/19 Weight Bearing Status Weight Bearing Status Weight Bear as Tolerated M3 OT- IP Subjective and Pain Start: 05/08/19 15:08 Freq: Status: Active Protocol: Document 05/09/19 11:36 [facility] (Rec: 05/09/19 11:43 [facility] [email or web address]) OT- Subjective Occupational Therapy Visit Type Type Treatment Note Visit Start Time 11:17 Visit Stop Time 11:27 Total Visit Minutes 10 Occupational Therapy Visit Comments Patient Comments Pt cooperative, but still orientated to self at this time. OT Pain Assessment Pain When Pain Assessed At Rest Pain Present Pain Present Denied Pain M4 OT- IP ADL's Start: 05/08/19 15:08 Freq: Status: Active Protocol: Document 05/09/19 11:36 [facility] (Rec: 05/09/19 11:43 [facility] [email or web address]) OT ADL-Grooming General Evaluation Grooming Ability Standby Assistance Comments OT Grooming Comments VC for orientation on items on the sink and vc to help sequence through the task of grooming. Therapist having to remind pt to put toothpaste on the toothbrush, and having to point to the brush so pt able to brush her hair. OT ADL-Oral Care General Eval Oral Care Ability Standby Assistance Comments Oral Care Comments Pt cues to rinse her mouth and spit. OT ADL-Dressing General Eval Lower Body Dressing Ability Independent Comments OT Dressing Comments Pt able to independently fuad/ doff socks today. OT ADL-Toileting Comments OT Toileting Comments Not performed as pt states not needing to go. OT ADL-Bathing Comments OT Bathing Comments Pt refused. M5 OT- IP IADL's Start: 05/08/19 15:08 Freq: Status: Active Protocol: Document 05/08/19 15:08 [facility] (Rec: 05/08/19 15:37 [facility] [email or web address]) OT-Instrumental Activities of Daily Living Home Safety Awareness Awareness of Need for Assistance at Home Decreased Awareness Ability to Problem Solve Emergency Unable to Problem Solve Situations Medication Management Medication Management Caregiver Administers Money Management Money Management Caregiver Provides Assistance Meal Preparation Meal Preparation Caregiver Provides Assist Investigative Agent Investigative Agent Caregiver Provides Assist Driving Driving Caregiver Provides Assist OT- Vision and Hearing OT- Vision Assessment Vision Assessment Comments Pt able to read printon name tag. M7 OT- IP Mobility and Balance Start: 05/08/19 15:08 Freq: Status: Active Protocol: Document 05/09/19 11:36 [facility] (Rec: 05/09/19 11:43 [facility] [email or web address]) OT-Transfer Assessment Sit to and From Stand Sit to and from Stand Standby Assistance Transfers Transfer Ability Standby Assistance Technique Transfer Destination Chair Devices Transfer Assistive Devices None Comments Mobility Comments Pt improved balance today and more steady on her feet and able to more in the room with distant SBA today. Pt not having to hold to the wall or counter for balance today. OT- Balance Assessment Sitting Balance and Reactions Static Sitting Balance Ability Normal Dynamic Sitting Balance Ability Normal Standing Balance and Reactions Static Standing Balance Ability Good M8 OT- IP Objective Assessments Start: 05/08/19 15:08 Freq: Status: Active Protocol: Document 05/08/19 15:08 [facility] (Rec: 05/08/19 15:37 [facility] [email or web address]) OT Gross Range of Motion Upper Extremity Range of Motion ROM Impairments Per observation of functinal task, pt WFL form elbow to distal. OT Strength Comments Strength Comments Pt having difficulty to follow directions for formal MMT, pt 's strength at least 3+/5. OT- Coordination Assessment Comments Coordination Comments Pt having difficulty to clasp her watch back on her right wrist with left hand. M9 OT- IP Assessment and Plan Start: 05/08/19 15:08 Freq: Status: Active Protocol: Document 05/09/19 11:36 [facility] (Rec: 05/09/19 11:43 [facility] [email or web address]) OT Summary Assessment and Plan Potential Rehabilitation Potential Fair Analytic Complexity at Evaluation Low Summary OT Impairments Strength,Balance,Functional Cognition,Functional Mobility, Grooming,Dressing,Toileting, Bathing,Toilet Transfers, Shower Transfers,Activity Tolerance Progress Towards Goals Slow Progress due to Activity Tolerance,Slow Progress due to Cognition Assessment Summary Pt appears close to baseline for ADl needs, however would still benefit from skilled rehab to maximize for mobility and balance needs. Due to her decreased functional cognition and ability to problem solve still suggest pt have 24/7 assist or go to memory care after going to skilled rehab. Goals Bathing Goal Minimal Assistance Shower Transfer Goal Contact Guard Assistance Days to Meet Goals 2 Frequency of Treatment Frequency Of Treatment Once a Day Treatment Plan OT Treatment Plan ADL Training,Functional Cognition Training,Functional Mobility,Patient/Family Education,Discharge Planning Other Treatment Recommendations and Next shower Treatment Focus Discharge Recommendations OT Discharge Recommendations SNF Rehab Transportation Needs at Discharge Private Vehicle
--- NOTE | 2019-05-09 13:32 | CM.DPC ---
Addendum entered by ELIJAH Lafleur 05/09/19 14:49: ADD: Call from Mayelin at [facility] who states they can accept pt but not today but in the morning and they can work on setting up transport for a morning time if pt agreeable. Raffaele from [facility] assessed pt bedside while pt's son was present and determined they can accept pt if needed. Pt's son requested to talk to MARIBEL and MD was present and states his Dtr works at [facility] as [employer] and preference is for pt to go to [facility]. MD agreeable with d/c tomorrow morning to [facility]. MARIBEL updated [facility] Raffaele who was also present during discussion. SW left msg with Mayelin in admissions at [facility] requesting her to set up morning transport time for pt and son's preference of their facility. PASRR completed in anticipation of SNF tomorrow. BF Original Note: DCP SNF Planning: Per MD, pt likely medically stable to d/c to SNF today. MARIBEL called [facility] and they will come and assess bedside today. MARIBEL called [facility] [place] and they did not receive the previous faxed clinicals as their fax machine having problems and requested it faxed to different number. MARIBEL called [facility] and determined that now Sandra Block the assigned CM and reviewing clinicals and Sandra states that she has approved pt for SNF auth. MARIBEL called Anu back to update and find out time of assessment and Raffaele to be bedside around 1330. Plan: SW to follow closely after bedside assessment if [facility] can accept today and [facility] review. ELIJAH Lafleur
[2019-05-09] MEDS: CEFTRIAXONE 1 GM/50 ML FROZ.PIGGY IV (14:44)
--- NOTE | 2019-05-09 16:40 | P.PN_ITS ---
Subjective Subjective Date Patient Seen: 05/09/19 Time Patient Seen: 09:20 Interval history: Almita Sanchez is an 83-year-old female with a past medical history of anxiety/depression, off medication for approximately 1 year, hypertension also off of medication for the past year and frequent urinary tract infections in the past who presented after a fall at her assisted living facility. On arrival she was noted to be in AFib with RVR. She is seen for follow-up today. She has since had a fairly controlled rate on oral metoprolol. She remains on metoprolol 50 mg twice daily with controlled rates. Her echocardiogram revealed an EF of 55% with possible inferior hypokinesis. Study is somewhat limited as the views were not technically correct due to patient's mental status. She needed to be convinced twice to undergo her echocardiogram, and refused apical views. Authorization was approved for rehab with [facility], and patient's family has selected [facility] and they did not have any openings today but can accept the patient tomorrow morning. Patient's discharge is planned for tomorrow. Exam Vital Signs (past 8 hours): - 05/09/19 11:19 05/09/19 16:06 Temperature 97.2 F L 97.3 F L Pulse Rate 71 77 Respiratory Rate 18 18 Blood Pressure 126/81 127/57 L Pulse Oximetry 98 99 Oxygen Delivery Method Room Air Oxygen Flow Rate 0 Narrative Exam Narrative: GENERAL APPEARANCE: Well developed, well nourished, elderly female in no acute distress. SKIN: Inspection of the skin reveals no rashes, ulcerations or petechiae. HEENT: The sclerae were anicteric and conjunctivae were pink and moist. Extraocular movements were intact and pupils were equal, round with normal accommodation. External inspection of the ears and nose showed no scars, lesions, or masses. Lips, teeth, and gums showed normal mucosa. The oral mucosa, hard and soft palate, tongue and posterior pharynx were unremarkable. NECK: Supple and symmetric. There was no thyroid enlargement, and no tenderness, or masses were felt. CHEST: Normal AP diameter and normal contour without any kyphoscoliosis. LUNGS: Auscultation of the lungs revealed no wheezes, rhonchi, or rales. CARDIOVASCULAR: Tachycardic, irregularly irregular rhythm without murmurs rubs or gallops. ABDOMEN: Soft and nontender with normal bowel sounds. No ascites was noted. MUSCULOSKELETAL: There was no tenderness or effusions noted. Muscle strength and tone were normal. EXTREMITIES: No cyanosis, clubbing or edema. NEUROLOGIC: Alert and oriented x1-2 (varies between encounters). Cognitive impairment evident. Did not attempt to name the date, no focal neurological deficits and cranial nerves 2-12 are grossly intact bilaterally. Objective Labs Result Diagrams: 05/08/19 04:40 05/09/19 05:05 Labs: Laboratory Results - last 24 hr 05/09/19 05:05 Sodium 137 Potassium 4.4 Chloride 101 Carbon Dioxide 32 BUN 23 H Creatinine 0.80 Estimated GFR > 60.0 BUN/Creatinine Ratio 28.8 H Glucose 93 Calcium 9.3 Magnesium 2.1 Total Bilirubin 0.9 Conjugated Bilirubin 0.0 Unconjugated Bilirubin 1.0 AST 36 ALT 26 Alkaline Phosphatase 82 Total Protein 6.7 Albumin 3.7 Globulin 3.0 Albumin/Globulin Ratio 1.2 Assessment & Plan Assessment & Plan narrative: Almita Sanchez is an 83-year-old female with a past medical history of anxiety/depression, off medication for approximately 1 year, hypertension also off of medication for the past year and frequent urinary tract infections in the past who presented after a fall at her assisted living facility, it is unclear if this was a mechanical fall, presyncope, or syncopal event at this time. She is admitted for new diagnosis of AFib with RVR under o bservation status. 1. Atrial fibrillation with rapid ventricular response, unknown chronicity, pres ent on admission, active -patient received 1 dose of IV diltiazem, started on metoprolol ER and have now increased to 50 mg twice a day with adequate rate control. -echocardiogram showing an EF of 50-55%, with possible inferior hypokinesis and a dilated left atrium. -troponin was negative x2 -patient does not clinically appear to be volume overloaded at this time and there is no need for diuretic therapy. -chads Vasc is currently 4, however patient has had multiple falls over the past year. She also does not have a current primary care provider. Once primary care provider is established I recommend they discuss possible anticoagulation at that time. 2. Essential Hypertension, active -patient has been off of anti hypertensives for the past year. Her blood pressure has been high since admission but now improved with oral metoprolol 3. Cognitive impairment, chronic, progressing - it is unclear at this time based on her presenting history and decline over the past year since stopping in antidepressant if her cognitive impairment is due to depression or a progressive dementia. Symptoms seem to be getting worse after she stopped her antidepressant, and patient does show evidence of depression including weight loss, lack of interest in activities, and relatively flat affect. -consider starting SSRI therapy to see if there is improvement, however she will need to establish care with a primary care provider she is likely developed good rapport with. -patient further does have a urinary tract infection, she was given a dose of ceftriaxone in the emergency room and will complete therapy today after 3 doses. Cultures were sent in the emergency room and we will have to see what grows. Urine culture ultimately grew pansensitive E coli. 4. Fall, acute -no acute injury sustained after a fall. This is her 2nd fall in the past year. It is unclear whether this fall was mechanical in nature, presyncope or an actual syncopal episode as the patient was not able to reliably recall the events that occurred this morning. -management as noted above. -PT evaluation appreciated, plan for discharge to SNF tomorrow. 5. Urinary tract infection, acute on chronic, present on admission -given ceftriaxone in the emergency room, will continue at this time as she is not reliable in reporting whether she has symptoms and her cognition is somewhat impaired although this appears more chronic in nature. -will treat for 3 days with ceftriaxone, urine culture as noted above. Code: Full, patient elects surrogate decision maker as her son, son reports that she has no other family DVT: Lovenox daily, pending further discussion on anticoagulation for atrial fibrillation Dispo: Admitted under observation status, currently recommended for SNF rehab, pending discharge to [facility] tomorrow.
[2019-05-10 00:30] VITALS: O2SAT 97
--- NOTE | 2019-05-10 03:17 | PC.NURSE ---
Addendum entered by She Diggs R.N. 05/10/19 03:21: Per report POLE PEELER aware of no IV access and is ordered to leave out. Original Note: Assumed care from Carmencita. Patient appears to be resting comfortably in bed. Bed alarm on and functioning. Patient not able to use call light appropriately.
--- NOTE | 2019-05-10 03:50 | PC.NURSE ---
Night Note-Patient was restless and wandering at beginning of shift, but able to go to sleep around 0130, bed alarm on. Report given to Zakia TOVAR at 0300.
[2019-05-10 05:06] VITALS: BP 112/67; PULSE 70; RESP 16; TEMP 35.9; O2SAT 99
[2019-05-10 05:33] LABS: Alanine Aminotransferase 28 IU/L (<35); Albumin 3.8 g/dL (3.5-5.0); Albumin Globulin Ratio 1.2 (1.0-2.8); Alkaline Phosphatase 82 U/L (38-126); Aspartate Aminotransferase 37 IU/L (14-36); BUN Creatinine Ratio 27.5 (6-22); Bilirubin Total 0.8 mg/dL (0.2-1.3); Bilirubin Unconjugated 0.9 mg/dL (0.0-1.1); Blood Urea Nitrogen 22 mg/dL (7-17); Calcium 9.1 mg/dL (8.4-10.2); Carbon Dioxide 31 mmol/L (22-32); Chloride 101 mmol/L (98-107); Estimated Glomerular Filt Rate > 60.0 mL/min (>60); Globulin 3.2 g/dL (1.7-4.1); Glucose 97 mg/dL (80-110); HEMOLYSIS < 15 (0-50); Magnesium 2.1 mg/dL (1.6-2.3); Potassium 4.3 mmol/L (3.4-5.1); Sodium 139 mmol/L (137-145)
[2019-05-10 06:00] VITALS: O2SAT 99
--- NOTE | 2019-05-10 07:54 | PC.NURSE ---
Patient sleeping on her right side, bed alarm on. Will continue to monitor.
[2019-05-10 08:00] VITALS: BP 134/69; PULSE 72; RESP 16; TEMP 36.3; O2SAT 94
[2019-05-10 08:28] VITALS: BP 134/69; PULSE 72
[2019-05-10] MEDS: METOPROLOL ER 25 MG TABLET 50 MG PO (08:28)
[2019-05-10] MEDS: ENOXAPARIN 40 MG/0.4 ML SYRINGE SUBCUT (08:28)
--- NOTE | 2019-05-10 09:50 | PT.IPTN ---
Physical Therapy Treatment Note M2 PT-IP Current Condition Start: 05/08/19 12:27 Freq: NEEDED Status: Active Protocol: Document 05/08/19 09:38 AB (Rec: 05/08/19 13:03 AB [id number]) Physical Therapy Current Condition Current Condition Evaluation Date 05/08/19 Treatment Diagnosis A-fib; difficulty in walking Onset Date 05/07/2019 Precautions Other Precautions Falls M3 PT-IP Subjective Start: 05/08/19 12:27 Freq: NEEDED Status: Active Protocol: Document 05/10/19 09:50 AB (Rec: 05/10/19 11:00 AB [id number]) Subjective Physical Therapy Visit Type Type Treatment Note Visit Start Time 09:50 Visit Stop Time 10:05 Total Visit Minutes 15 Number of INTERNAL MEDICINE SPECIALIST Visits 0 Physical Therapy Visit Comments Patient Comments pt agreeable to do PT; stated I am bored sitting on the chair Therapy Pain Assessment Pain Present Pain Present Denied Pain M4 PT-IP Mobility and Gait Start: 05/08/19 12:27 Freq: NEEDED Status: Active Protocol: Document 05/10/19 09:50 AB (Rec: 05/10/19 11:00 AB [id number]) PT-Transfer Assessment Sit to and From Stand Sit to and from Stand Contact Guard Assistance,1 Person Assistance,Use of Upper Extremities Equipment Transfer Assistive Device Gait Belt,Front Wheeled Walker Orthotic/Prosthetic Devices or Brace: No Gait Assessment Gait Gait Assistance Required: Contact Guard Assist,Minimum Assistance Distance (Feet) 150 Able to Maintain Weight Bearing Status Yes During Gait Assistive Devices Assistive Device None,Gait Belt,Front Wheeled Walker Orthotic/Prosthetic Devices or Brace: No Gait Deviations General Gait Pattern Antalgic,Decreased Stride Length,Decreased Feet Clearance Factors Limiting Gait Function Factors Limiting Gait Function Decreased Activity Tolerance, Decreased Strength,Difficulty Following Directions,Poor Balance,Poor Safety Awareness Comments Gait Comments pt completed sit to stand from chair CGA and ambulated in the hallway using FWW ~ 150 ft CGA and cues. pt with decrease safety awareness and requires cues for directions. completed ambulation without AD and requires CGA to min A with occasional LOB requiring min A. completed ~ 150 ft and cues for steadiness. pt agreed to stay up on chair. positioned back on chair. chair alarm on. call light and table placed witin reach. 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 Comments pt does not know where she is and where she lives, does not know why she is in the hospital, does not recall falling Gross Range of Motion Lower Extremity ROM Assessment Within Functional Limits Strength Lower Extremity Strength Assessment Bilaterally Impaired Hip 3+/5 Knee 3+/5 Ankle 3+/5 Muscle Tone Muscle Tone WNL Yes M6 PT-IP Treatment Start: 05/08/19 12:27 Freq: NEEDED Status: Active Protocol: Document 05/10/19 09:50 AB (Rec: 05/10/19 11:00 AB [id number]) Physical Therapy Treatment Education Education Provided Safety M7 PT-IP Assessment and Plan Start: 05/08/19 12:27 Freq: NEEDED Status: Active Protocol: Document 05/10/19 09:50 AB (Rec: 05/10/19 11:00 AB [id number]) PT Summary Assessment and Plan Potential Rehabilitation Potential Good Summary Impairments Strength,Balance,Coordination, Tone,Cognition,Bed Mobility, Transfers,Gait,Activity Tolerance Progress Towards Goals Slow Progress - Other Assessment Summary pt ambulating better today but continues to be unsteady requiring CGA to min A. pt has decrease safety awareness affecting mobility and independence. pt will benefit from SNF rehab and eventually to a memory care facility as pt will require 24/7 assist due to decrease safety awareness. Goals Bed Mobility Goal Independent Transfer Goal Independent,Front Wheeled Walker Gait Goal Independent,Front Wheel Walker Gait Distance 200 Other Goals to improve ambulation without AD 200 ft SBA Days to Meet Goals 5 Frequency of Treatment Frequency Of Treatment Once a Day Treatment Plan Physical Therapy Treatment Plan Bed Mobility Training,Transfer Training,Gait Training, Therapeutic Exercise,Balance Retraining,Discharge Planning, Hot or Cold Pack,Neuromuscular Re-ed,Coordination Retraining Other Recommendations and Next Treatment standing balance, ambulation Focus Recommendations To Nursing Amount of Assist Needed 1 Person Assist Discharge Recommendations PT Discharge Recommendations SNF Rehab Transportation Needs at Discharge Wheelchair/Cabulance
--- NOTE | 2019-05-10 10:51 | PM.DS.1 ---
History of Present Illness History of Present Illness Date Patient Seen: 05/10/19 Time Patient Seen: 10:51 Chief complaint: GLF Narrative: Almita Sanchez is an 83-year-old female with a past medical history of anxiety/depression, off medication for approximately 1 year, hypertension also off of medication for the past year and frequent urinary tract infections in the past who presented after a fall at her assisted living facility. Patient lives at [facility] and this morning she was wanting to stand up and leave the room but ended up falling with unclear circumstances and landed on her right hip and knee. It is unclear whether she lost consciousness, became dizzy prior to the fall and The patient does not recall the fall at all upon my evaluation and was unable to provide additional history. She denies any recent fevers, chills, shortness of breath, dizziness, chest pain, palpitations, abdominal pain, diaphoresis, nausea, vomiting, dysuria, or urinary frequency. She also presented to the emergency room in December after a fall, but had a negative evaluation at that point, circumstances were very similar. The son reports a progressive decline in her cognition over the past year or so after some deaths in the family. She was previously on an antidepressant but stopped taking this about a year ago because she was feeling fine and did not want to continue the medicine any longer. Further she was seeing Dr. Dyson as her primary care provider, but has not established care with a new provider since she left. The son also reports increasing needs at [facility] which he has been trying to keep up with. Per ED report, and According to medics, patient was able to take few steps at the scene without assistance but reports discomfort in right hip and knee. She was noted to be in AFib with RVR and responded to diltiazem in the emergency room, but still intermittently spikes her heart rates into the 130s and 140s, but is generally in the 90s to 100s. She was also hypertensive, but had no tachypnea and did not desaturate. Chest x-ray did not show an acute cardio- pulmonary process, and imaging of her right hip and knee did not show any fractures. EKG showed AFib with RVR with a rate of 110, there is no ST depressions or T-wave inversions indicative of ischemia. Her initial troponin was negative. Further lab evaluation was also unremarkable including CBC, BMP, TSH. Her UA was positive with 5-10 wbc's, and many urine bacteria, and the specimen was sent for culture. Patient was given a dose of ceftriaxone, 1 time dose of diltiazem which did improve her rate slightly, and was admitted to Medicine under observation status for AFib with RVR. Discharge Providers Provider Date of admission: 05/07/19 14:56 Discharge Date: 05/10/19 Consults: 05/07/19 17:31 Consult to Dietitian, Adult Routine Comment: Reason For Exam: unintentional weight loss 05/07/19 17:51 Consult to Occupational Therapy Evaluate & Treat Comment: Physician Instructions: Evaluate and treat Consult to Physical Therapy Evaluate & Treat Comment: Physician Instructions: Evaluate and Treat Discharge provider: Chapito Berger DO Summary Hospital Course Discharge Diagnosis: Please see below in hospital course by problem list. Hospital Course: Almita Sanchez is an 83-year-old female with a past medical history of anxiety/depression, off medication for approximately 1 year, hypertension also off of medication for the past year and frequent urinary tract infections in the past who presented after a fall at her assisted living facility, it is unclear if this was a mechanical fall, presyncope, or syncopal event at this time. She is admitted for new diagnosis of AFib with RVR under observation status. 1. Atrial fibrillation with rapid ventricular response, unknown chronicity, present on admission, active -patient received 1 dose of IV diltiazem, started on metoprolol ER and have now increased to 50 mg twice a day with adequate rate control. -echocardiogram showing an EF of 50-55%, with possible inferior hypokinesis and a dilated left atrium. -troponin was negative x2 -patient does not clinically appear to be volume overloaded at this time and there is no need for diuretic therapy. -chads Vasc is currently 4, however patient has had multiple falls over the past year. She also does not have a current primary care provider. Once primary care provider is established I recommend they discuss possible anticoagulation at that time. 2. Essential Hypertension, active -patient has been off of anti hypertensives for the past year. Her blood pressure improved with oral metoprolol only. 3. Cognitive impairment, chronic, progressing - it is unclear at this time based on her presenting history and decline over the past year since stopping in antidepressant if her cognitive impairment is due to depression or a progressive dementia. Symptoms seem to be getting worse after she stopped her antidepressant, and patient does show evidence of depression including weight loss, lack of interest in activities, and relatively flat affect. -consider starting SSRI therapy to see if there is improvement, however she will need to establish care with a primary care provider she can developed a good rapport with. -patient further does have a urinary tract infection, she was given a dose of ceftriaxone in the emergency room and will complete therapy today after 3 doses. Urine culture ultimately grew pansensitive E coli. She was fully treated as an inpatient and does not require any further antibiotics. 4. Fall, acute -no acute injury sustained after a fall. This is her 2nd fall in the past year. It is unclear whether this fall was mechanical in nature, presyncope or an actual syncopal episode as the patient was not able to reliably recall the events that occurred this morning. -management as noted above. -PT evaluation appreciated, plan for discharge to [facility] in [place]. 5. Urinary tract infection, acute on chronic, present on admission, resolved -given ceftriaxone in the emergency room, and continued for a total of 3 doses as the patient is not reliable in reporting possible symptoms. She has completed a course of antibiotics as an inpatient. Status at Discharge Cognitive/behavioral status at discharge: at baseline, confused Time Spent with Patient Time spent: Greater than 30 minutes Exam Vital Signs (past 8 hours): - 05/10/19 05:06 05/10/19 06:00 05/10/19 08:00 Temperature 96.6 F L 97.4 F L Pulse Rate 70 72 Respiratory Rate 16 16 Blood Pressure 112/67 134/69 Pulse Oximetry 99 99 94 05/10/19 08:28 Temperature Pulse Rate 72 Respiratory Rate Blood Pressure 134/69 Pulse Oximetry Oxygen Delivery Method Room Air Oxygen Flow Rate 0 Narrative Exam Narrative: GENERAL APPEARANCE: Well developed, well nourished, elderly female in no acute distress. SKIN: Inspection of the skin reveals no rashes, ulcerations or petechiae. HEENT: The sclerae were anicteric and conjunctivae were pink and moist. Extraocular movements were intact and pupils were equal, round with normal accommodation. External inspection of the ears and nose showed no scars, lesions, or masses. Lips, teeth, and gums showed normal mucosa. The oral mucosa, hard and soft palate, tongue and posterior pharynx were unremarkable. NECK: Supple and symmetric. There was no thyroid enlargement, and no tenderness, or masses were felt. CHEST: Normal AP diameter and normal contour without any kyphoscoliosis. LUNGS: Auscultation of the lungs revealed no wheezes, rhonchi, or rales. CARDIOVASCULAR: Tachycardic, irregularly irregular rhythm without murmurs rubs or gallops. ABDOMEN: Soft and nontender with normal bowel sounds. No ascites was noted. MUSCULOSKELETAL: There was no tenderness or effusions noted. Muscle strength and tone were normal. EXTREMITIES: No cyanosis, clubbing or edema. NEUROLOGIC: Alert and oriented x1-2 (varies between encounters). Cognitive impairment evident. Did not attempt to name the date, no focal neurological deficits and cranial nerves 2-12 are grossly intact bilaterally. Objective Labs Result Diagrams: 05/08/19 04:40 05/10/19 04:45 Labs: Laboratory Results - last 24 hr 05/10/19 04:45 Sodium 139 Potassium 4.3 Chloride 101 Carbon Dioxide 31 BUN 22 H Creatinine 0.80 Estimated GFR > 60.0 BUN/Creatinine Ratio 27.5 H Glucose 97 Calcium 9.1 Magnesium 2.1 Total Bilirubin 0.8 Conjugated Bilirubin 0.0 Unconjugated Bilirubin 0.9 AST 37 H ALT 28 Alkaline Phosphatase 82 Total Protein 7.0 Albumin 3.8 Globulin 3.2 Albumin/Globulin Ratio 1.2 Discharge Plan Discharge Plan Patient Disposition: Home Discharge comment: Patient was admitted to the hospital after a fall. She was found to be in AFib with RVR. She was started on metoprolol and this improved her heart rate quite dramatically. She was not started on anticoagulation over concern for frequent falls recently, as well as no primary care follow-up. She should also consider restarting an antidepressant medication based on her symptoms once a new primary care provider is established. After physical therapy evaluation patient is being discharged to [facility] today. Discharge orders & Medications Prescriptions: New acetaminophen 325 mg Tablet 650 mg PO Q6HR PRN (Reason: Fever/Mild Pain (1-3)) 7 Days Qty: 20 RF: 0 melatonin 3 mg Tablet 6 mg PO BEDTIME PRN (Reason: sleep) 30 Days Qty: 30 RF: 0 metoprolol succinate 50 mg tablet extended release 24 hr 50 mg PO BID 30 Days Qty: 60 RF: 0 Diet/Activity/Treatments Diet: Diet as Tolerated Activity: As tolerated Discharge Data Attending Provider: Chapito Berger Admit Date/Time: 05/07/19 14:56
[2019-05-10 12:00] VITALS: BP 133/87; PULSE 75; RESP 16; TEMP 36.5; O2SAT 99
--- NOTE | 2019-05-10 12:19 | CM.DPC ---
DCP Cont: Faxed discharge packet: Signed meds, PASRR, SNF order and discharge summary to Pascale Hagen at fax # [phone]. Fax confirmation scanned in. Porfirio Ruggiero Director Of Dietary
--- NOTE | 2019-05-10 14:50 | CM.DPNOTE ---
DC Note: DC order placed by Dr Berger this morning, pt's family remain agreeable to DC to [facility] [place] today [facility] arranged for p/u at approx 1300, son Benjamin and dtr in law made aware. RN also updated on plan [place], [facility], faxed all DC ppk to include completed PASRR to [facility], [place] at [facility] updated on plan P: DC to [facility] via cabulance today ELIJAH Lao
== END 2019-05-10 13:00 ==
LOC: ED 14:48 → AC 14:56 → ICU 16:35 → AC 05-08 16:43
PROVIDERS: Admitting Provider Internal Medicine; Emergency Provider Nurse Practitioner Family; Referring Provider Nurse Practitioner Family; Visit Provider Internal Medicine
DX: M25.551 Pain in right hip (principal); M25.561 Pain in right knee; W18.39XA Other fall on same level, initial encounter; Y92.099 Unspecified place in other non-institutional residence as the place of occurrence of the external cause; F03.90 Unspecified dementia, unspecified severity, without behavioral disturbance, psychotic disturbance, mood disturbance, and anxiety; F32.9 Major depressive disorder, single episode, unspecified; F41.9 Anxiety disorder, unspecified; I48.91 Unspecified atrial fibrillation; I10 Essential (primary) hypertension; Z91.81 History of falling; N39.0 Urinary tract infection, site not specified
CPT/HCPCS: 36415; 71045; 73521; 73562; 80048; 80053; 80061; 80076; 81003; 81015; 82550; 83036; 83735; 84439; 84443; 84484; 85025; 87077; 87086; 87186; 93005; 93010; 93306; 96361; 96365; 96366; 96372; 96375; 97116; 97161; 97165; 97530; 97535; 99285; G0378; J1650

== ENCOUNTER → 2019-09-03 14:34 | Outpatient (CLI) | payer OTHER, SELFPAY ==
[2019-05-07 14:59] VITALS: BMI 23.0
[2019-09-05 09:08] LABS: COVID19 Sendout Not Detected (Not Detected)
== END ==
PROVIDERS: PCP Nurse Practitioner; Visit Provider Physician Assistant
DX: Z11.59 Encounter for screening for other viral diseases (principal)
CPT/HCPCS: 87635